=== PATIENT | male | born 1965 | race Caucasian/White ===

== ENCOUNTER 2016-04-27 00:05 | Inpatient (IN) | payer MEDICARE, MEDICAID ==
[~2016-04-27] VITALS: Ht 177.8 cm; Wt 112.6 kg
[2016-04-27] VITALS (65 sets, daily range): BP systolic 98–211; BP diastolic 32–99; PULSE 74–97; RESP 10–21; TEMP 98; Ht 177.8 cm; Wt 112.6 kg
[~2016-04-27 00:05] MED LIST: ALBU18HF INHALATION; CALC667C PO; CARV6.2579 PO; CINA60TA PO; GABA300C16 PO; LANT3I SC; LOSA50TA2 PO; NOVO3I SC; PANT40TA4 PO
[2016-04-27] MEDS ORDERED: NITROGLYCERIN 2% 1 GM OINT PKT TD STA (00:17)
[2016-04-27] MEDS ORDERED: ASPIRIN 81 MG TAB PO ONE (00:30)
[2016-04-27] MEDS ORDERED: NITROGLYCERIN (SL) 0.4 MG TAB SL PRN (00:30)
[2016-04-27 00:59] LABS: BASOPHILS % 0.1 % (0.0-2.0); EOSINOPHILS # 0.1 10^3/ul (0.0-0.5); HEMATOCRIT 37.6 % (42.0-52.0); HEMOGLOBIN 12.6 g/dl (14.0-18.0); LYMPHOCYTES # 1.9 10^3/ul (0.8-2.9); LYMPHOCYTES % 15.9 % (15.0-51.0); MEAN CORPUSCULAR HEMOGLOBIN 29.7 pg (29.0-33.0); MEAN CORPUSCULAR HGB CONC 33.5 g/dl (32.0-37.0); MEAN CORPUSCULAR VOLUME 88.8 fl (82.0-101.0); MEAN PLATELET VOLUME 9.2 fl (7.4-10.4); MONOCYTE # 0.5 10^3/ul (0.3-0.9); MONOCYTES % 4.1 % (0.0-11.0); NEUTROPHIL # 9.3 10^3/ul (1.6-7.5); NEUTROPHILS % 78.9 % (39.0-77.0); PLATELET COUNT 248 10^3/UL (140-440); RED BLOOD COUNT 4.24 10^6/ul (4.70-6.10); RED CELL DISTRIBUTION WIDTH 16.8 % (11.5-14.5); UNCORRECTED WBC 11.8 10^3/ul (4.8-10.8); WHITE BLOOD COUNT 11.8 10^3/ul (4.8-10.8)
[2016-04-27 01:02] LABS: CONDITION 1; LH ANALYZER COMMENTS 1
[2016-04-27 01:04] LABS: AADO2 Arterial 116.8 mmHg (7.0-24.0); Allen Test ACCEPTAB; Arterial Base Excess -6.5 mmol/L (-3.0-3); Arterial COHb 0.2 % (0.0-3.0); Arterial Fraction of Oxyhgb 99.2 % (93.0-99.0); Arterial MetHb 0.1 % (0.0-1.5); Arterial Total Hemglobin 13.4 g/dl (12.0-18.0); Blood Gas IEPAP 18/8; Blood Gas PS 10; MODE MASK - BIPAP
[2016-04-27 01:06] LABS: INR 0.97; PROTIME 12.9 Sec (12.2-14.2)
[2016-04-27 01:07] LABS: PARTIAL THROMBOPLASTIN TIME 30.3 Sec (25.0-35.0)
[2016-04-27] MEDS ORDERED: NITROGLYCERIN 50 MG/D5W (PMX) 250 ML IV STA (01:11)
[2016-04-27 01:24] LABS: CK-MB 7.21 ng/ml (0.0-2.4)
[2016-04-27 01:25] LABS: TROPONIN-I 0.018 ng/ml (0.00-0.12)
[2016-04-27 01:26] LABS: TROPONIN-I 0.017 ng/ml (0.00-0.12)
[2016-04-27 01:34] LABS: CREATININE 15.47 mg/dl (0.61-1.24)
[2016-04-27] MEDS ORDERED: INSULIN REGULAR, HUMAN 100 UNIT/1 ML 3ML VIAL IV STA (01:41)
[2016-04-27] MEDS ORDERED: NA BICARBONATE 8.4% 50 ML SYG IV STA (01:41)
[2016-04-27] MEDS ORDERED: CA GLUCONATE (GM) 10% 10ML INJ IV STA (01:41)
[2016-04-27] MEDS ORDERED: ALBUTEROL 0.5% (NEB) 2.5 MG/0.5 ML AMP INH STA (01:41)
[2016-04-27] MEDS ORDERED: DEXTROSE 50% 50 ML SYRINGE IV STA (01:41)
[2016-04-27 01:42] LABS: POTASSIUM 7.9 mmol/L (3.5-5.1)
--- NOTE | 2016-04-27 02:08 | RADRPT ---
PROCEDURE: XR Chest. CLINICAL INDICATION: Chest pain. TECHNIQUE: AP Portable chest. COMPARISON: 03/29/2016 FINDINGS: There is moderate cardiomegaly. There is mild pulmonary vascular congestion. The osseous structure s are unremarkable. IMPRESSION: Mild pulmonary vascular congestion. RPTAT: HIKT .Jamey Rodríguez MD, MD Date Time Electronically viewed and signed by .Jamey Rodríguez MD, MD on 04/27/2016 02:08 .T/
[2016-04-27] MEDS ORDERED: HYDROmorphONE 1 MG/ML SYG IV STA (02:23)
[2016-04-27] MEDS ORDERED: ONDANSETRON 4 MG INJ IV STA (02:23)
[2016-04-27] MEDS ORDERED: LABETALOL HCL 20MG INJ IV ONE ×2 (02:30→05:30)
[2016-04-27] MEDS ORDERED: NA POLYST SULFON 15 GM/60 ML BTL PO ONE (03:00)
[2016-04-27] MEDS ORDERED: AMLODIPINE 10 MG TAB PO ONE (03:00)
--- NOTE | 2016-04-27 03:38 | ERA ---
ER Documentation Chief Complaint Date/Time DATE: 04/27/16 TIME: 03:35 Chief Complaint Shortness of breath worsening today. on dialysis. MWF HPI Patient is a 50-year-old male with dialysis, diabetes, and hypertension who presents with shortness of breath. The symptoms started today. The symptoms got worse. Patient did have dialysis on Wednesday he says. He denies fever or cough. He was admitted previously on March 28 for hyperkalemia. Upon review of old medical records this is the patient's eighth visit to the ER since 2012. ROS All systems reviewed and are negative except as per history of present illness. Medications Home Meds Active Scripts Carvedilol* (Carvedilol*) 6.25 Mg Tablet, 6.25 MG PO BID for 30 Days, TAB Prov:MICHOACANO SUH NP 03/30/16 Insulin Aspart* (Novolog Insulin Pen*) 100 Unit/Ml Soln, 10 UNIT SC WITH MEALS for 30 Days Prov:MICHOACANO SUH NP 03/30/16 Insulin Glargine* (Lantus*) 100 Unit/Ml Soln, 30 UNIT SC DAILY for 30 Days Prov:MICHOACANO SUH NP 03/30/16 Losartan Potassium* (Cozaar*) 50 Mg Tablet, 50 MG PO DAILY for 30 Days, TAB Prov:MICHOACANO SUH NP 03/30/16 Albuterol Sulfate* (Ventolin HFA*) 18 Gm Hfa.aer.ad, 2 PUFF INHALATION Q4H, #1 INHALER Prov:PAOLO TIERNEY 02/19/16 Reported Medications Calcium Acetate* (Calcium Acetate*) 667 Mg Capsule, 667 MG PO TID, #810 03/28/16 Cinacalcet* (Sensipar*) 60 Mg Tablet, 60 MG PO DAILY, TAB 02/19/16 Pantoprazole* (Pantoprazole*) 40 Mg Tablet.dr, 40 MG PO AC BREAKFAST, TAB 02/19/16 Gabapentin* (Gabapentin*) 300 Mg Capsule, 300 MG PO DAILY, #60 CAP 02/19/16 Allergies Allergies: Coded Allergies: No Known Allergy (Unverified , 02/19/16) PMhx/Soc History of Surgery: Yes (NECK, L AV FISTULA,) Anesthesia Reaction: No Hx Neurological Disorder: No Hx Respiratory Disorders: Yes (SOB) Hx Cardiac Disorders: Yes (HTN) Hx Psychiatric Problems: No Hx Miscellaneous Medical Probl: Yes (DM, ESRD, DIALYSIS) Hx Alcohol Use: No Hx Substance Use: No Hx Tobacco Use: No Smoking Status: Never smoker FmHx Family History: diabetes Physical Exam Vitals Vital Signs Date Time Temp Pulse Resp B/P Pulse Ox O2 Delivery O2 Flow Rate FiO2 04/27/16 01:10 93 100 40 04/27/16 00:35 Non Rebreather 15 04/27/16 00:25 96 100 100 04/27/16 00:06 98.0 97 28 239/120 88 Physical Exam Const: Severe distress Head: Atraumatic Eyes: Normal Conjunctiva ENT: Normal External Ears, Nose and Mouth. Neck: Full range of motion..~ No meningismus. Resp: Decreased breath sounds bilaterally, patient has tachypnea and accessory muscle use Cardio: Tachycardic rate Abd: Soft, non tender, non distended. Normal bowel sounds Skin: Pale Back: No midline or flank tenderness Ext: No cyanosis, or edema Neur: Awake and alert Result Diagram: 04/27/16 0027 04/27/16 0027 Results 24 hrs Laboratory Tests Test 04/27/16 00:15 04/27/16 00:27 Arterial Blood HCO3 20.0mmol/L Arterial Blood Base Excess -6.5mmol/L Arterial Blood Oxygen Saturation 99.5mmHG Roly Test ACCEPTAB Arterial Blood Gas Puncture Site Right Radial Arterial Blood Carboxyhemoglobin 0.2% Arterial Blood Date Drawn 04/27/2016 12:55:08 AM Arterial Blood Methemoglobin 0.1% Arterial Blood pCO2 (Temp correct) 43.2mmhg Arterial Blood pH (Temp corrected) 7.283 Arterial Blood pO2 (Temp corrected) 553.0mmHG Blood Gas A-a O2 Differential 116.8mmHg Blood Gas Actual Respiration Rate 28 Blood Gas Critical Value Read Back Tianna OBRIEN MD Blood Gas IPAP/EPAP Ratio 18/8 Blood Gas Modality MASK - BIPAP Blood Gas Notified Time 04/27/2016 1:04:34 AM Blood Gas Notified Whom KARRIE Blood Gas Pressure Support 10 Blood Gas Respiration Rate 14.0 Blood Gas Specimen Source Blood arterial Blood Gas Temperature 37.0C FiO2 100.0% Oxyhemoglobin Percent 99.2% Total Hemoglobin 13.4g/dl Activated Partial Thromboplast Time 30.3Sec Anion Gap 36 Basophils # 0.010^3/ul Basophils % 0.1% Blood Morphology Comment Blood Urea Nitrogen 119mg/dl Calcium Level 8.0mg/dl Carbon Dioxide Level 22mmol/L Chloride Level 86mmol/L Creatine Kinase 251IU/L Creatine Kinase Index 2.9 Creatinine 15.47mg/dl Creatinine Kinase MB (Mass) 7.21ng/ml Eosinophils # 0.110^3/ul Eosinophils % 1.0% Glucose Level 191mg/dl Hematocrit 37.6% Hemoglobin 12.6g/dl INR International Normalized Ratio 0.97 Lymphocytes # 1.910^3/ul Lymphocytes % 15.9% Mean Corpuscular Hemoglobin 29.7pg Mean Corpuscular Hemoglobin Concent 33.5g/dl Mean Corpuscular Volume 88.8fl Mean Platelet Volume 9.2fl Monocytes # 0.510^3/ul Monocytes % 4.1% Neutrophils # 9.310^3/ul Neutrophils % 78.9% Nucleated Red Blood Cells # 0.010^3/ul Nucleated Red Blood Cells % 0.0/100WBC Platelet Count 28406^3/UL Potassium Level 7.9mmol/L Prothrombin Time 12.9Sec Prothrombin Time Ratio 1.0 Red Blood Count 4.2410^6/ul Red Cell Distribution Width 16.8% Sodium Level 136mmol/L Troponin I 0.017ng/ml White Blood Count 11.810^3/ul Current Medications Medications (Trade) Dose Ordered Sig/Kinjal Route PRN Reason Start Time Stop Time Status Last Admin Dose Admin Aspirin (Aspirin) 162 mg ONCE ONCE PO 04/27/16 00:30 04/27/16 00:31 DC 04/27/16 00:27 Nitroglycerin (Nitroglycerin 2% Oint) 1 inch ONCE STAT TD 04/27/16 00:17 04/27/16 00:18 DC 04/27/16 00:26 Nitroglycerin 1 tab 1 tab Q5M UP TO 3 DOSES PRN SL CHEST PAIN 04/27/16 00:30 04/27/16 00:27 Nitroglycerin/ Dextrose (Nitroglycerin 50 Mg/D5W (Pmx)) 250 ml @ 6 mls/hr ONCE STAT IV 04/27/16 01:11 04/28/16 18:50 04/27/16 01:26 Insulin Human Regular (Humulin R) 10 unit ONCE STAT IV 04/27/16 01:41 04/27/16 01:43 DC 04/27/16 01:54 Dextrose (D50w Syringe) 50 ml ONCE STAT IV 04/27/16 01:41 04/27/16 01:43 DC 04/27/16 01:53 Albuterol (Proventil 0.5% (Neb)) 15 mg ONCE STAT INH 04/27/16 01:41 04/27/16 01:43 DC 04/27/16 01:58 Sodium Bicarbonate (Na Bicarb 8.4% Syg) 50 ml ONCE STAT IV 04/27/16 01:41 04/27/16 01:43 DC 04/27/16 01:58 Calcium Gluconate (Ca Gluc) 1 gm ONCE STAT IV 04/27/16 01:41 04/27/16 01:43 DC 04/27/16 01:52 Labetalol HCl (Labetalol) 20 mg ONCE ONCE IV 04/27/16 02:30 04/27/16 02:31 DC 04/27/16 02:15 Hydromorphone HCl (Dilaudid) 1 mg ONCE STAT IV 04/27/16 02:23 04/27/16 02:24 DC 04/27/16 02:33 Ondansetron HCl (Zofran Inj) 4 mg ONCE STAT IV 04/27/16 02:23 04/27/16 02:24 DC 04/27/16 02:33 Amlodipine Besylate (Norvasc) 10 mg ONCE ONCE PO 04/27/16 03:00 04/27/16 03:01 DC Sodium Polystyrene Sulfonate (Kayexalate) 30 gm ONCE ONCE PO 04/27/16 03:00 04/27/16 03:01 DC 04/27/16 02:55 Procedures/MDM EKG read by me: Rate/Rhythm: Regular rate and rhythm at a rate of 97 Intervals: Normal Impression: Peaked T waves of hyperkalemia Patient is a 50-year-old male presents with what appears to be acute pulmonary edema. He needed BiPAP therapy as he was hypoxic. He was also significantly hypertensive and was given labetalol 20 mg IV and placed on a nitroglycerin drip. The patient has hyperkalemia with a potassium of 7.9 and required insulin , glucose, albuterol, bicarbonate, Kayexalate, and calcium. The patient will need emergent dialysis. I spoke with Dr. Ward who will arrange dialysis in the morning. His insurance is [employer] and I spoke with Dr. Woodruff who will admit the patient to the intensive care unit. Critical Care: Time: 45 minutes excluding all billable procedures. Treatments/Evaluations: Close monitoring and treatment of unstable vital signs, cardiorespiratory, and neurologic status, while maintaining tight balance of fluid, respiratory, and cardiac interventions. Departure Diagnosis: Primary Impression: Hyperkalemia Additional Impressions: Hypertensive emergency Shortness of breath Condition: Critical ERICK MCKEON MD Apr 27, 2016 03:38
[2016-04-27] MEDS ORDERED: INSULIN REGULAR, HUMAN 100 UNIT in SOD CHLORIDE 0.9% 99 ML IV SCH ×2 (06:00)
[2016-04-27] MEDS ORDERED: ACCUCHECK XX SCH (06:00)
[2016-04-27] MEDS ORDERED: ONDANSETRON 4 MG INJ IV PRN (06:00)
[2016-04-27] MEDS ORDERED: ZOLPIDEM 5 MG TAB PO PRN (06:00)
[2016-04-27] MEDS ORDERED: GLUCOSE GEL 15 GRAM TUBE PO PRN ×2 (07:00)
[2016-04-27] MEDS ORDERED: DEXTROSE 50% 50 ML SYRINGE IV PRN ×2 (07:00)
[2016-04-27] MEDS ORDERED: GLUCAGON 1 MG INJ IM PRN (07:00)
[2016-04-27] MEDS ORDERED: GLUCOSE GEL 15 GRAM TUBE BUCCAL PRN (07:00)
[2016-04-27] MEDS ORDERED: CARV12.579 PO (07:14)
[2016-04-27] MEDS ORDERED: FOLI-49 PO (07:14)
[2016-04-27] MEDS ORDERED: APR50 PO (07:14)
[2016-04-27] MEDS ORDERED: NEPH PO (07:15)
[2016-04-27] MEDS ORDERED: HYDR-906 PO (07:16)
[2016-04-27] MEDS ORDERED: TRAV2.5D BOTH EYES (07:17)
[2016-04-27] MEDS ORDERED: BRIM15DR2 BOTH EYES (07:17)
[2016-04-27] MEDS ORDERED: LATA2.5D9 BOTH EYES (07:18)
[2016-04-27] MEDS: SEVELAMER CARBONATE 0.8 GM PKT PO SCH ×3 (07:30→17:32)
[2016-04-27 07:59] LABS: AADO2 Arterial 85.4 mmHg (7.0-24.0); Allen Test ACCEPTAB; Arterial Base Excess -6.3 mmol/L (-3.0-3); Arterial COHb 0.3 % (0.0-3.0); Arterial Fraction of Oxyhgb 98.1 % (93.0-99.0); Arterial HCO3 18.1 mmol/L (22.0-26.0); Arterial MetHb 0.1 % (0.0-1.5); Arterial Total Hemglobin 12.1 g/dl (12.0-18.0); Blood Gas IEPAP 22/8; Blood Gas PS 14; MODE MASK - BIPAP
[2016-04-27] MEDS: INSULIN ASPART [NOVOLOG] 3 ML PEN SC SCH ×4 (08:00→20:41)
[2016-04-27 08:37] LABS: CALCIUM 7.6 mg/dl (8.4-10.2)
[2016-04-27 08:53] LABS: CREATININE 15.52 mg/dl (0.61-1.24)
[2016-04-27 08:54] LABS: POTASSIUM 6.9 mmol/L (3.5-5.1)
[2016-04-27] MEDS ORDERED: CARVEDILOL (CR) 80 MG CAP PO SCH (09:00)
[2016-04-27] MEDS ORDERED: LOSARTAN 50 MG TAB PO SCH (09:00)
[2016-04-27] MEDS: GABAPENTIN 300 MG CAP PO SCH (09:15)
[2016-04-27] MEDS: HYDROCODONE/APAP (5/325) TAB PO PRN ×3 (09:15→20:37)
[2016-04-27] MEDS: CALCIUM ACETATE 667 MG CAP PO SCH ×3 (09:15→17:32)
[2016-04-27] MEDS: PANTOPRAZOLE (EC) 40 MG TAB PO SCH (09:16)
[2016-04-27] MEDS: INSULIN GLARGINE [LANtus] 3 ML PEN SC SCH (09:29)
--- NOTE | 2016-04-27 10:03 | CONS ---
DATE OF ADMISSION: 04/27/2016 DATE OF CONSULTATION: TYPE OF CONSULTATION: Nephrology. HISTORY OF PRESENT ILLNESS: This is a 50-year-old gentleman with known end-stage renal disease due to diabetes and hypertension who has been on dialysis for the past 3 years and dialyzes every Wednesday , Wednesday, and Wednesday at the [facility] in [place]. On repeated questioning, I could not ascertain exactly who his outpatient passenger booking clerk is. Needless to say, he did his routine dialysis on Wednesday, 3 days ago, but presented to the ER early th is morning hypertensive, hyperkalemic and in congestive heart failure with a potassium of 7.9. His blood pressure reportedly was 240/120. The patient was placed on BiPAP, given labetalol IV as well as treated for his hyperkalemia with alb uterol, bicarb, glucose and insulin and admitted to the ICU, and he is currently on dialysis. He feels markedly improved, albeit history is somewhat limited as the patient is on a BiPAP mask. Apparently, he has done this numerous times in the past, most recently was hospitalized on 6 with a similar presentation. He currently denies any chest pain. PAST MEDICAL HISTORY: Please see full dictated problem list. ALLERGIES: NONE. HABITS: Tobacco: None. Alcohol: None. CURRENT MEDICATIONS: 1. Insulin per sliding scale. 2. Nitroglycerin drip for blood pressure control. 3. Albuterol. 4. Amlodipine 10 mg a day. 5. Aspirin 162 mg a day. 6. PhosLo 2 tabs t.i.d. with meals. 7. Carvedilol 6.25 b.i.d. 8. Neurontin 300 mg daily. 9. Losartan 50 mg daily. 10. Pantoprazole 40 mg daily. REVIEW OF SYSTEMS: As per HPI, 14-point system otherwise negative. PHYSICAL EXAMINATION: GENERAL: Awake, alert gentleman currently on BiPAP but in no acute distress. VITAL SIGNS: He is afebrile, blood pressure is 159/92, heart rate is 77 in a sinus rhythm, respirat ions are 12 to 16. O2 saturation is 100% on 40% BiPAP. SKIN: Warm, well perfused. HEAD: Normocephalic, atraumatic. EYES: Pupils are round, reactive. Extraocular movements are full. Sclerae are anicteric. PHARYNX: No lesions. NECK: His neck is thick and squat. JVP could not be discerned. BACK: No CVAT. LUNGS: Show a few fine rales at the bases. HEART: S1, S2, regular rate and rhythm. ABDOMEN: Soft and nontender. EXTREMITIES: No cyanosis, clubbing or edema. Distal pulses are 2+. He has a well-functioning left forearm AV fistula. LABORATORY DATA: White count 11.8, hemoglobin 12.6, hematocrit 37.6, platelet count 248,000. INR i s 0.97, sodium 137, potassium 6.9, chloride 88, bicarbonate 22, BUN 125, creatinine 15.52, glucose 1 19, calcium is 7.6. Troponin is 0.018 and 0.017. PROBLEM LIST: 1. Acute congestive heart failure, currently on dialysis with improving symptoms. 2. End-stage renal disease on dialysis every Wednesday, Wednesday, Wednesday for the past 3 years. 3. Hyperkalemia status post cocktail in the emergency room, now on dialysis. 4. Diabetes mellitus. 5. Hypertension, markedly improved with resumption of medications and dialysis. RECOMMENDATIONS: 1. Acute hemodialysis that is currently ongoing. 2. Resume antihypertensive medications. 3. Further recommendations pending response to above. Dictated By: NAUN LANDRY MD, MM/SCOTT Conf#: [id number] DID#: [id number]
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
[2016-04-27 13:15] LABS: AADO2 Arterial 58.6 mmHg (7.0-24.0); Allen Test ACCEPTAB; Arterial Base Excess 1.1 mmol/L (-3.0-3); Arterial COHb 0.1 % (0.0-3.0); Arterial Fraction of Oxyhgb 97.6 % (93.0-99.0); Arterial HCO3 25.4 mmol/L (22.0-26.0); Arterial MetHb 0 % (0.0-1.5); MODE NASAL CANNULA
[2016-04-27 13:54] LABS: BASOPHILS % 0.5 % (0.0-2.0); EOSINOPHILS # 0.1 10^3/ul (0.0-0.5); EOSINOPHILS % 1.4 % (0.0-7.0); HEMATOCRIT 32.4 % (42.0-52.0); HEMOGLOBIN 10.9 g/dl (14.0-18.0); LYMPHOCYTES # 0.9 10^3/ul (0.8-2.9); MEAN CORPUSCULAR HEMOGLOBIN 29.5 pg (29.0-33.0); MEAN CORPUSCULAR HGB CONC 33.6 g/dl (32.0-37.0); MEAN CORPUSCULAR VOLUME 87.7 fl (82.0-101.0); MEAN PLATELET VOLUME 9.2 fl (7.4-10.4); MONOCYTE # 0.4 10^3/ul (0.3-0.9); MONOCYTES % 4.8 % (0.0-11.0); NEUTROPHIL # 7.5 10^3/ul (1.6-7.5); NEUTROPHILS % 83.3 % (39.0-77.0); PLATELET COUNT 214 10^3/UL (140-440); RED BLOOD COUNT 3.69 10^6/ul (4.70-6.10); RED CELL DISTRIBUTION WIDTH 16.9 % (11.5-14.5)
[2016-04-27 13:55] LABS: CONDITION 1; LH ANALYZER COMMENTS 1
[2016-04-27 14:09] LABS: ALBUMIN 4.7 g/dl (3.3-4.9)
[2016-04-27 14:10] LABS: POTASSIUM 4.6 mmol/L (3.5-5.1)
[2016-04-27 14:12] LABS: ALBUMIN/GLOBULIN RATIO 1.42; BILIRUBIN,INDIRECT 0.7 mg/dl (0-1.1); BILIRUBIN,TOTAL 0.7 mg/dl (0.2-1.3); CREATININE 10.11 mg/dl (0.61-1.24)
[2016-04-27 14:13] LABS: CALCIUM 8.3 mg/dl (8.4-10.2); MAGNESIUM 2.2 mg/dl (1.7-2.5); PHOSPHORUS 7.4 mg/dl (2.5-4.9)
[2016-04-27 14:24] LABS: CK-MB 4.33 ng/ml (0.0-2.4); TROPONIN-I 0.018 ng/ml (0.00-0.12)
[2016-04-27] MEDS: NITROGLYCERIN 50 MG/D5W (PMX) 250 ML IV SCH (19:35)
[2016-04-27] MEDS ORDERED: AMLODIPINE 5 MG TAB PO ONE (20:00)
[2016-04-28] VITALS (71 sets, daily range): BP systolic 95–180; BP diastolic 56–116; PULSE 70–100; RESP 11–34
[2016-04-28] MEDS: ACCUCHECK AT 2AM (Patients on SS coverage) XX SCH (02:00)
[2016-04-28] MEDS: morphine 2 MG INJ IV PRN ×3 (02:03→18:24)
[2016-04-28] MEDS: NITROGLYCERIN 50 MG/D5W (PMX) 250 ML IV SCH (04:49)
[2016-04-28 06:00] LABS: BASOPHILS % 0.4 % (0.0-2.0); EOSINOPHILS # 0.1 10^3/ul (0.0-0.5); EOSINOPHILS % 0.9 % (0.0-7.0); HEMATOCRIT 32.6 % (42.0-52.0); HEMOGLOBIN 11.1 g/dl (14.0-18.0); LYMPHOCYTES # 1.1 10^3/ul (0.8-2.9); MEAN CORPUSCULAR HEMOGLOBIN 30.2 pg (29.0-33.0); MEAN CORPUSCULAR HGB CONC 34.1 g/dl (32.0-37.0); MEAN CORPUSCULAR VOLUME 88.7 fl (82.0-101.0); MEAN PLATELET VOLUME 8.6 fl (7.4-10.4); MONOCYTE # 0.9 10^3/ul (0.3-0.9); MONOCYTES % 7.5 % (0.0-11.0); NEUTROPHIL # 10.2 10^3/ul (1.6-7.5); NEUTROPHILS % 82.2 % (39.0-77.0); PLATELET COUNT 202 10^3/UL (140-440); RED BLOOD COUNT 3.67 10^6/ul (4.70-6.10); RED CELL DISTRIBUTION WIDTH 17.3 % (11.5-14.5); UNCORRECTED WBC 12.4 10^3/ul (4.8-10.8); WHITE BLOOD COUNT 12.4 10^3/ul (4.8-10.8)
[2016-04-28 06:03] LABS: CONDITION 1; LH ANALYZER COMMENTS 1
[2016-04-28] MEDS: PANTOPRAZOLE (EC) 40 MG TAB PO SCH (06:07)
[2016-04-28] MEDS: HYDROCODONE/APAP (5/325) TAB PO PRN ×3 (06:07→20:04)
--- NOTE | 2016-04-28 07:01 | RADRPT ---
PROCEDURE: XR Chest. CLINICAL INDICATION: Shortness of breath TECHNIQUE: An AP view of the chest was obtained. COMPARISON: Chest x-ray dated 04/27/2016 FINDINGS: There is prominence of the interstitial markings. No pleural effusion or pneumothorax is seen. Th e cardiomediastinal silhouette is mildly enlarged . Calcifications are seen within the aortic arch. The osseous structures demonstrate senescent changes. IMPRESSION: 1. Mild prominence of the interstitial markings, may reflect mild underlying interstitial edema or chronic lung changes. Lung aeration is significantly improved when compared to the prior examination . 2. Mild cardiomegaly and aortic atherosclerosis. RPTAT: HH .Denise Aranda MD, Date Time Electronically viewed and signed by .Denise Aranda MD, on 04/28/2016 07:00 .Brian/
[2016-04-28] MEDS: INSULIN ASPART [NOVOLOG] 3 ML PEN SC SCH ×4 (07:35→21:00)
[2016-04-28] MEDS: SEVELAMER CARBONATE 0.8 GM PKT PO SCH ×3 (07:59→17:35)
[2016-04-28] MEDS: CALCIUM ACETATE 667 MG CAP PO SCH ×3 (08:00→17:35)
[2016-04-28 08:08] LABS: ALBUMIN/GLOBULIN RATIO 1.53
[2016-04-28 08:10] LABS: POTASSIUM 5.4 mmol/L (3.5-5.1)
[2016-04-28 08:11] LABS: ALBUMIN 4.3 g/dl (3.3-4.9); BILIRUBIN,INDIRECT 0.5 mg/dl (0-1.1); BILIRUBIN,TOTAL 0.5 mg/dl (0.2-1.3); CALCIUM 7.7 mg/dl (8.4-10.2); CREATININE 12.18 mg/dl (0.61-1.24); TOTAL PROTEIN 7.1 g/dl (6.1-8.1)
[2016-04-28] MEDS: GABAPENTIN 300 MG CAP PO SCH (08:45)
[2016-04-28] MEDS: LOSARTAN 50 MG TAB PO SCH (08:45)
[2016-04-28] MEDS: NIFEdipine (XL) 30 MG TAB PO SCH (08:46)
[2016-04-28] MEDS: INSULIN GLARGINE [LANtus] 3 ML PEN SC SCH (08:47)
--- NOTE | 2016-04-28 10:44 | CONS ---
DATE OF ADMISSION: 04/27/2016 DATE OF CONSULTATION: NEPHROLOGY CONSULTATION NOTE SUBJECTIVE: The patient feels markedly better after dialysis yesterday with resolution of his marked CHF and hyperkalemia. He still feels somewhat weak, but no chest pain or shortness of breath. He remains on IV nitro for blood pressure control. PHYSICAL EXAMINATION: VITAL SIGNS: He is afebrile, blood pressure 130/75, heart rate is 90 and sinus rhythm, respirations are 12 and unlabored, O2 saturation 100% on 2 liters. SKIN: No new rashes. LUNGS: Clear. HEART: S1, S2, regular rate and rhythm. ABDOMEN: Soft and nontender. EXTREMITIES: No edema. Well-functioning fistula in the left upper extremity. LABORATORY DATA: White count 12.4, hemoglobin 11.1, hematocrit 32.6, platelet count 202,000. Chemi stries are pending. Sugar is 143. Chest x-ray shows just mild prominent interstitial markings much improved over yesterday. PROBLEM LIST: 1. Hyperkalemia presumably resolved. A.m. labs pending. 2. End-stage renal disease for planned dialysis tomorrow. 3. Acute congestive heart failure, markedly improved. 4. Diabetes mellitus with good control. 5. Hypertension due to low dose medication. RECOMMENDATIONS: 1. I will increase his carvedilol to 25 mg b.i.d. 2. We will Increase Losartan to 100 mg a day. 3. We will add Procardia-XL 30 mg a day. 4. Clonidine 0.1 q.4h. p.r.n. 5. Rapidly wean off IV nitro once the above are started. 6. Physical therapy. 7. Dialysis in the morning. Dictated By: NAUN LANDRY MD, MM/SCOTT Conf#: [id number] DID#: [id number]
--- NOTE | 2016-04-28 12:44 | PN ---
Date/Time of Note Date/Time of Note DATE: 04/28/16 TIME: 12:31 Assessment/Plan VTE Prophylaxis VTE Prophylaxis Intervention: SCD's Lines/Catheters IV Catheter Type (from Nrs): Peripheral IV Urinary Cath still in place: No Assessment/Plan Assessment/Plan 50-year-old male : 1. CHF exacerbation likely with diastolic dysfunction and respiratory distress 2ry to volume overload, dietary indiscretion (after eating tamales and going through 1 bottle of Champagne) on Sirisha and day. HD emergently and volume status much better today. Patient seemed to have similar episode earlier in March too.. Compliance mat be an ongoing issue 2. Hypertensive Emergency: s/p HD and BP meds added and adjusted Monitor and titrating Nitro gtt down 3. Hyperkalemia: resolving with HD Renal diet 4. Diabetes Mellitus: SSI and back on Lantus Check A1c, however was 9.5 earlier this month Prophylaxis: SCDs for DVT ppx and PPI for GI ppx Disposition: Titrating off Nitro gtt Subjective 24 Hr Interval Summary Free Text/Dictation Patient feels better Still on Nitro gtt but being titrated down Appreciate recommendations from Nephro for BP meds additions and adjustments Exam/Review of Systems Vital Signs Vitals Vital Signs Date Time Temp Pulse Resp B/P Pulse Ox O2 Delivery O2 Flow Rate FiO2 04/28/16 12:15 83 16 126/65 100 Nasal Cannula 04/28/16 12:00 98.8 04/28/16 08:00 2.0 04/27/16 09:30 40 Intake and Output 04/27/16 04/27/16 04/28/16 15:00 23:00 07:00 Intake Total 981.5 ml 852.75 ml 338.5 ml Output Total 5200 ml 0 ml 0 ml Balance -4218.5 ml 852.75 ml 338.5 ml Exam Constitutional: alert, oriented, other (a little restless ), well developed Respiratory: clear to auscultation, normal air movement Cardiovascular: nl pulses, regular rate and rhythm Gastrointestinal: non-tender, soft Musculoskeletal: nl extremities to inspection Extremities: edema (+1 edema), normal pulses Neurological: [employer]ANCE [employer]UC[employer] LIAISON II-XII intact, nl mental status, nl speech, nl strength Results Result Diagram: 04/28/16 0535 04/28/16 0535 Results 24 hrs Laboratory Tests Test 04/27/16 13:00 04/27/16 13:45 04/27/16 17:30 04/27/16 20:39 Arterial Blood HCO3 25.4 Arterial Blood Base Excess 1.1 Arterial Blood Oxygen Saturation 97.7 Roly Test ACCEPTAB Arterial Blood Gas Puncture Site Right Radial Arterial Blood Carboxyhemoglobin 0.1 Arterial Blood Date Drawn 04/27/2016 1:05:43 PM Arterial Blood Methemoglobin 0 Arterial Blood pCO2 (Temp correct) 38.9 Arterial Blood pH (Temp corrected) 7.432 Arterial Blood pO2 (Temp corrected) 109.6 H Blood Gas A-a O2 Differential 58.6 H Blood Gas Modality NASAL CANNULA Blood Gas Notified Time 04/27/2016 1:15:10 PM Blood Gas Notified Whom TM Blood Gas Specimen Source Blood arterial Blood Gas Temperature 37.0 FiO2 30.0 Oxyhemoglobin Percent 97.6 Total Hemoglobin 12.0 Alanine Aminotransferase (ALT/SGPT) 29 Albumin 4.7 Albumin/Globulin Ratio 1.42 Alkaline Phosphatase 128 H Anion Gap 27 #H Aspartate Amino Transf (AST/SGOT) 33 Basophils # 0.0 Basophils % 0.5 Blood Morphology Comment Blood Urea Nitrogen 72 #H Calcium Level 8.3 L Carbon Dioxide Level 26 Chloride Level 90 L Creatine Kinase 182 Creatine Kinase Index 2.4 Creatinine 10.11 #H Creatinine Kinase MB (Mass) 4.33 H Direct Bilirubin 0.00 Eosinophils # 0.1 Eosinophils % 1.4 Globulin 3.30 H Glucose Level 179 Hematocrit 32.4 L Hemoglobin 10.9 L Indirect Bilirubin 0.7 Lymphocytes # 0.9 Lymphocytes % 10.0 L Magnesium Level 2.2 Mean Corpuscular Hemoglobin 29.5 Mean Corpuscular Hemoglobin Concent 33.6 Mean Corpuscular Volume 87.7 Mean Platelet Volume 9.2 Monocytes # 0.4 Monocytes % 4.8 Neutrophils # 7.5 Neutrophils % 83.3 H Nucleated Red Blood Cells # 0.0 Nucleated Red Blood Cells % 0.0 Phosphorus Level 7.4 H Platelet Count 214 Potassium Level 4.6 # Red Blood Count 3.69 L Red Cell Distribution Width 16.9 H Sodium Level 138 Total Bilirubin 0.7 Total Protein 8.0 Troponin I 0.018 White Blood Count 9.0 # Bedside Glucose 212 184 Test 04/28/16 02:09 04/28/16 05:35 04/28/16 07:59 04/28/16 11:42 Bedside Glucose 143 110 113 Alanine Aminotransferase (ALT/SGPT) 37 Albumin 4.3 Albumin/Globulin Ratio 1.53 Alkaline Phosphatase 116 Anion Gap 30 H Aspartate Amino Transf (AST/SGOT) 19 Basophils # 0.0 Basophils % 0.4 Blood Morphology Comment Blood Urea Nitrogen 86 H Calcium Level 7.7 L Carbon Dioxide Level 23 Chloride Level 87 L Creatinine 12.18 #H Direct Bilirubin 0.00 Eosinophils # 0.1 Eosinophils % 0.9 Globulin 2.80 Glucose Level 106 # Hematocrit 32.6 L Hemoglobin 11.1 L Indirect Bilirubin 0.5 Lymphocytes # 1.1 Lymphocytes % 9.0 L Mean Corpuscular Hemoglobin 30.2 Mean Corpuscular Hemoglobin Concent 34.1 Mean Corpuscular Volume 88.7 Mean Platelet Volume 8.6 Monocytes # 0.9 Monocytes % 7.5 Neutrophils # 10.2 H Neutrophils % 82.2 H Nucleated Red Blood Cells # 0.0 Nucleated Red Blood Cells % 0.0 Platelet Count 202 Potassium Level 5.4 H Red Blood Count 3.67 L Red Cell Distribution Width 17.3 H Sodium Level 135 Total Bilirubin 0.5 Total Protein 7.1 White Blood Count 12.4 #H Medications Medications Current Medications Insulin Glargine (Lantus) 30 unit DAILY SC Last administered on 04/28/16 08:47 ; Admin Dose 30 UNIT; Start 04/27/16 at 09:00 Gabapentin (Neurontin) 300 mg DAILY PO Last administered on 04/28/16 08:45; Admin Dose 300 MG; Start 04/27/16 at 09:00 Pantoprazole (Protonix Tab) 40 mg DAILY@06 PO Last administered on 04/28/16 06: 07; Admin Dose 40 MG; Start 04/27/16 at 06:00 Ondansetron HCl (Zofran Inj) 4 mg Q6H PRN IV NAUSEA; Start 04/27/16 at 06:00 Zolpidem Tartrate (Ambien) 5 mg HS PRN PO INSOMNIA; Start 04/27/16 at 06:00 Diagnostic Test (Pha) (Accucheck) 1 ea 02 XX Last administered on 04/28/16 02: 00; Admin Dose 1 EA; Start 04/28/16 at 02:00 Miscellaneous Information 1 ea NOTE XX ; Start 04/27/16 at 07:00 Glucose (Glutose) 15 gm Q15M PRN PO DECREASED GLUCOSE; Start 04/27/16 at 07:00 Glucose (Glutose) 22.5 gm Q15M PRN PO DECREASED GLUCOSE; Start 04/27/16 at 07:00 Dextrose (D50w Syringe) 25 ml Q15M PRN IV DECREASED GLUCOSE; Start 04/27/16 at 07:00 Dextrose (D50w Syringe) 50 ml Q15M PRN IV DECREASED GLUCOSE; Start 04/27/16 at 07:00 Glucagon (Glucagen) 1 mg Q15M PRN IM DECREASED GLUCOSE; Start 04/27/16 at 07:00 Glucose (Glutose) 15 gm Q15M PRN BUCCAL DECREASED GLUCOSE; Start 04/27/16 at 07: 00 Acetaminophen/ Hydrocodone Bitart 1 tab 1 tab Q4H PRN PO PAIN LEVEL 6-10 Last administered on 04/28/16 06:07; Admin Dose 1 TAB; Start 04/27/16 at 09:00 Nitroglycerin/ Dextrose (Nitroglycerin 50 Mg/D5W (Pmx)) 250 ml @ 0 mls/hr TITRATE IV Last administered on 04/28/16 04:49; Admin Dose 28.5 MLS/HR; Start 04/27/16 at 19:30 Morphine Sulfate (morphine) 2 mg Q4H PRN IV pain Last administered on 04/28/16 09:33; Admin Dose 2 MG; Start 04/28/16 at 02:00 Carvedilol (Coreg) 25 mg BID PO Last administered on 04/28/16 08:46; Admin Dose 25 MG; Start 04/28/16 at 09:00 Losartan Potassium (Cozaar) 100 mg DAILY PO Last administered on 04/28/16 08:45 ; Admin Dose 100 MG; Start 04/28/16 at 09:00 Nifedipine (Procardia Xl) 30 mg DAILY PO Last administered on 04/28/16 08:46; Admin Dose 30 MG; Start 04/28/16 at 09:00 Clonidine (Catapres) 0.1 mg Q4H PRN PO ELEVATED BLOOD PRESSURE; Start 04/28/16 at 08:00 ROGELIO NANCE Apr 28, 2016 12:42
[2016-04-28 14:37] LABS: POTASSIUM 5.4 mmol/L (3.5-5.1)
[2016-04-28 14:40] LABS: CALCIUM 7.3 mg/dl (8.4-10.2)
[2016-04-28 14:56] LABS: CREATININE 12.96 mg/dl (0.61-1.24)
--- NOTE | 2016-04-28 15:21 | RADRPT ---
Echocardiogram Report Patient Name: KIKI TINEO Gender: Male Date: 1965 Study Date: 28-Apr-2016 Medical Laboratory Technicians: Jordi Wakefield RDCS Location: [facility] [place] [place] Ref. Physician: SHIRIN NANCE Quality: Adequate Procedures: Transthoracic echocardiogram with complete 2D, M-Mode, and doppler examination. Indications: Congestive Heart Failure. 2D/M Mode Doppler Measurement Value Normal Ranges Measurement Value Normal Ranges LVIDd 2D 6.6 3.5 - 5.6 cm AV Peak Vinicio 1.7 m/sec LVIDs 2D 3.8 2.1 - 4.1 cm AV Peak PG 11.8 mmHg LVPWd 2D 1.1 0.6 - 1.1 cm LVOT Peak Vinicio 1.3 m/sec IVSd 2D 1.2 0.6 - 1.1 cm LVOT Peak PG 7.0 mmHg AoR Diam 2D 3.3 2.0 - 3.7 cm MV E Peak Vinicio 0.9 m/sec EDV 2D 222.0 cm3 MV A Peak Vinicio 1.0 m/sec ESV 2D 55.4 cm3 MV E/A 0.9 LA Dimen 2D 3.9 2.3 - 4.0 cm MV Decel Time 212 msec MV Decel [place] 4 MV E/A 0.9 TR Peak Vinicio 2.9 m/sec TR Peak PG 33.6 mmHg RVSP 42.0 mmHg Findings Left Ventricle: Mild concentric left ventricular hypertrophy. Mild enlargement of left ventricle cavity. Mild to moderate global left ventricular systolic dysfunction. Ejection fraction is visually estimated at 40 %. Tissue Doppler/Mitral Doppler indices are consistent with impaired relaxation (Stage I diastolic dysfunction). Right Ventricle: Normal right ventricular size. Normal right ventricular systolic function. Left Atrium: The left atrium is normal in size. Right Atrium: The right atrium is normal in size. Mitral Valve: Mitral valve leaflets appear mildly thickened. Mild mitral annular calcification. Mild mitral valve regurgitation. Aortic Valve: Normal appearance of the aortic valve. No significant aortic stenosis or insufficiency. Tricuspid Valve: Normal appearance of the tricuspid valve. Estimated peak PA systolic pressure 42 mmHg. There is mild tricuspid regurgitation. Pericardium: Normal pericardium with no significant pericardial effusion. Aorta: Normal aortic root. IVC: Dilated IVC with respiratory collapse consistent with elevated right atrial pressure. Conclusions 1.Mild concentric left ventricular hypertrophy. Mild enlargement of left ventricle cavity. Mild to moderate global left ventricular systolic dysfunction. Ejection fraction is visually estimated at 40 %. Tissue Doppler/Mitral Doppler indices are consistent with impaired relaxation (Stage I diastolic dysfunction). 2.Normal right ventricular size. Normal right ventricular systolic function. 3.The left atrium is normal in size. 4.The right atrium is normal in size. 5.Mild mitral valve regurgitation. 6.No significant aortic stenosis or insufficiency. 7.Estimated peak PA systolic pressure 42 mmHg. There is mild tricuspid regurgitation. 8.Normal pericardium with no significant pericardial effusion. Electronically Signed By: Carlos Latif 28-Apr-2016 15:20:36 -0800 Patient Name: KIKI TINEO Study Date: 28-Apr-[id number]
[2016-04-29] VITALS (21 sets, daily range): BP systolic 107–155; BP diastolic 57–92; PULSE 68–86; RESP 10–18
[2016-04-29] MEDS: HYDROCODONE/APAP (5/325) TAB PO PRN ×2 (00:41→09:19)
[2016-04-29] MEDS: ACCUCHECK AT 2AM (Patients on SS coverage) XX SCH (02:00)
[2016-04-29 04:56] LABS: POTASSIUM 5.1 mmol/L (3.5-5.1)
[2016-04-29 04:57] LABS: BASOPHIL # 0.1 10^3/ul (0.0-0.1); BASOPHILS % 0.5 % (0.0-2.0); EOSINOPHILS # 0.2 10^3/ul (0.0-0.5); HEMOGLOBIN 10.7 g/dl (14.0-18.0); LYMPHOCYTES # 2.1 10^3/ul (0.8-2.9); LYMPHOCYTES % 20.9 % (15.0-51.0); MEAN CORPUSCULAR HEMOGLOBIN 29.8 pg (29.0-33.0); MEAN CORPUSCULAR HGB CONC 33.6 g/dl (32.0-37.0); MEAN CORPUSCULAR VOLUME 88.8 fl (82.0-101.0); MEAN PLATELET VOLUME 8.7 fl (7.4-10.4); MONOCYTE # 0.8 10^3/ul (0.3-0.9); MONOCYTES % 8.1 % (0.0-11.0); NEUTROPHILS % 68.5 % (39.0-77.0); PLATELET COUNT 185 10^3/UL (140-440); UNCORRECTED WBC 10.3 10^3/ul (4.8-10.8); WHITE BLOOD COUNT 10.3 10^3/ul (4.8-10.8)
[2016-04-29 04:59] LABS: CALCIUM 7.5 mg/dl (8.4-10.2)
[2016-04-29 05:05] LABS: MAGNESIUM 2.1 mg/dl (1.7-2.5); PHOSPHORUS 11.8 mg/dl (2.5-4.9)
[2016-04-29 05:24] LABS: CONDITION 1; LH ANALYZER COMMENTS 1
[2016-04-29] MEDS: morphine 2 MG INJ IV PRN ×3 (05:42→19:58)
[2016-04-29] MEDS: PANTOPRAZOLE (EC) 40 MG TAB PO SCH (05:43)
[2016-04-29] MEDS: INSULIN ASPART [NOVOLOG] 3 ML PEN SC SCH ×4 (07:35→20:02)
[2016-04-29] MEDS: CALCIUM ACETATE 667 MG CAP PO SCH ×3 (08:40→17:47)
[2016-04-29] MEDS: SEVELAMER CARBONATE 0.8 GM PKT PO SCH ×3 (08:40→17:47)
--- NOTE | 2016-04-29 08:40 | CONS ---
DATE OF ADMISSION: 04/27/2016 DATE OF CONSULTATION: NEPHROLOGY NOTE SUBJECTIVE: The patient's medications were changed as I noted yesterday, and he has been safely off nitroglycerin now for several hours with excellent BP control. He has no complaints. OBJECTIVE: VITAL SIGNS: He remains afebrile, blood pressure currently is 110/60, heart rate is 70 and regular, respirations are 12 and unlabored, O2 saturation is 100% on 2 L. SKIN: No new rashes. LUNGS: Clear. HEART: S1, S2, regular rate and rhythm. ABDOMEN: Soft. EXTREMITIES: No edema. LABORATORY DATA: White count 10.3, hemoglobin 10.7, hematocrit 32.0, platelet count 185,000. Sodiu m 130, potassium 5.1, chloride 84, bicarbonate 22, BUN 109, creatinine 15, glucose 169, calcium is 7 .5. Phosphorus is 11.8, magnesium is 2.1. Chest x-ray yesterday showed just mild prominence of int erstitial markings, much improved compared to the predialysis chest x-ray. PROBLEM LIST: 1. Hyperkalemia due to noncompliance, resolved with dialysis. 2. Congestive heart failure due to above, also resolved with dialysis. 3. Hypertension, out of control, now under excellent control with current list of medications off n itroglycerin. 4. End-stage renal disease, for planned hemodialysis today. 5. Hyperphosphatemia due to noncompliance as noted. 6. Diabetes mellitus with good control. RECOMMENDATIONS: 1. Would continue his current medications of carvedilol 25 mg b.i.d., losartan 100 mg daily, and Pr ocardia 30 mg daily. 2. Encourage compliance with his phosphate binders. 3. Dialysis this morning. 4. Anticipate ability to be discharged sometime today. Dictated By: NAUN LANDRY MD, MM/SCOTT Conf#: [id number] DID#: [id number]
[2016-04-29] MEDS: GABAPENTIN 300 MG CAP PO SCH (09:00)
[2016-04-29] MEDS: LOSARTAN 50 MG TAB PO SCH (09:00)
[2016-04-29] MEDS: NIFEdipine (XL) 30 MG TAB PO SCH (09:00)
[2016-04-29] MEDS: INSULIN GLARGINE [LANtus] 3 ML PEN SC SCH (09:00)
--- NOTE | 2016-04-29 10:29 | PN ---
Date/Time of Note Date/Time of Note DATE: 04/29/16 TIME: 10:12 Assessment/Plan VTE Prophylaxis VTE Prophylaxis Intervention: SCD's Lines/Catheters [facility]from [facility] [place] Urinary Cath still in place: No Assessment/Plan Assessment/Plan 50-year-old male : 1. CHF exacerbation likely with diastolic and systolic dysfunction with EF 40% and respiratory distress 2ry to volume overload, dietary indiscretion (after eating tamales and going through 1 bottle of Champagne) on Sirisha and day. On HD and volume status much better today. HD today Patient seemed to have similar episode earlier in March too.. Compliance may be an ongoing issue 2. Hypertensive Emergency: s/p HD and BP meds added and adjusted OFF Nitro gtt and stable x 24 hrs so will transfer to Tele 3. Hyperkalemia: resolving with HD Renal diet 4. Diabetes Mellitus: SSI and back on Lantus A1c 10.5, was 9.5 earlier this month Patient non compliant with diet at least .... Prophylaxis: SCDs for DVT ppx and PPI for GI ppx Disposition: Transfer to telemetry today Subjective 24 Hr Interval Summary Free Text/Dictation Patient feels better today and BP better controlled, off Nitro gtt HD today and transferring to Tele today Exam/Review of Systems Vital Signs Vitals Vital Signs Date Time Temp Pulse Resp B/P Pulse Ox O2 Delivery O2 Flow Rate FiO2 04/29/16 06:00 76 17 100 Nasal Cannula 04/29/16 04:00 98.2 04/29/16 03:00 2.0 04/27/16 09:30 40 Intake and Output 04/28/16 04/28/16 04/29/16 15:00 23:00 07:00 Intake Total 636 ml 540 ml 60 ml Output Total 0 ml 0 ml 0 ml Balance 636 ml 540 ml 60 ml Exam Constitutional: alert, oriented, well developed Respiratory: diminished breath sounds (bases bilaterally ) Cardiovascular: nl pulses, regular rate and rhythm Gastrointestinal: non-tender, soft Musculoskeletal: nl extremities to inspection Extremities: normal pulses, other (still with some anasarca ) Neurological: LIEUTENANT FIREFIGHTER II-XII intact, nl mental status, nl speech, nl strength Results Result Diagram: 04/29/16 0425 04/29/16 0425 Results 24 hrs Laboratory Tests Test 04/28/16 11:42 04/28/16 14:00 04/28/16 17:34 04/28/16 21:27 Bedside Glucose 113 109 150 Anion Gap 26 H Blood Urea Nitrogen 94 H Calcium Level 7.3 L Carbon Dioxide Level 24 Chloride Level 87 L Creatinine 12.96 H Glucose Level 105 Potassium Level 5.4 H Sodium Level 132 L Test 04/29/16 04:25 04/29/16 08:02 Anion Gap 29 H Basophils # 0.1 Basophils % 0.5 Blood Morphology Comment Blood Urea Nitrogen 109 H Calcium Level 7.5 L Carbon Dioxide Level 22 Chloride Level 84 L Creatinine 15.00 #H Eosinophils # 0.2 Eosinophils % 2.0 Glucose Level 169 Hematocrit 32.0 L Hemoglobin 10.7 L Lymphocytes # 2.1 Lymphocytes % 20.9 Magnesium Level 2.1 Mean Corpuscular Hemoglobin 29.8 Mean Corpuscular Hemoglobin Concent 33.6 Mean Corpuscular Volume 88.8 Mean Platelet Volume 8.7 Monocytes # 0.8 Monocytes % 8.1 Neutrophils # 7.0 Neutrophils % 68.5 Nucleated Red Blood Cells # 0.0 Nucleated Red Blood Cells % 0.0 Phosphorus Level 11.8 #H Platelet Count 185 Potassium Level 5.1 Red Blood Count 3.60 L Red Cell Distribution Width 17.0 H Sodium Level 130 L White Blood Count 10.3 Bedside Glucose 172 Medications Medications Current Medications Insulin Glargine (Lantus) 30 unit DAILY SC Last administered on 04/28/16 08:47 ; Admin Dose 30 UNIT; Start 04/27/16 at 09:00 Gabapentin (Neurontin) 300 mg DAILY PO Last administered on 04/28/16 08:45; Admin Dose 300 MG; Start 04/27/16 at 09:00 Pantoprazole (Protonix Tab) 40 mg DAILY@06 PO Last administered on 04/29/16 05: 43; Admin Dose 40 MG; Start 04/27/16 at 06:00 Ondansetron HCl (Zofran Inj) 4 mg Q6H PRN IV NAUSEA; Start 04/27/16 at 06:00 Zolpidem Tartrate (Ambien) 5 mg HS PRN PO INSOMNIA; Start 04/27/16 at 06:00 Diagnostic Test (Pha) (Accucheck) 1 ea 02 XX Last administered on 04/28/16 02: 00; Admin Dose 1 EA; Start 04/28/16 at 02:00 Miscellaneous Information 1 ea NOTE XX ; Start 04/27/16 at 07:00 Glucose (Glutose) 15 gm Q15M PRN PO DECREASED GLUCOSE; Start 04/27/16 at 07:00 Glucose (Glutose) 22.5 gm Q15M PRN PO DECREASED GLUCOSE; Start 04/27/16 at 07:00 Dextrose (D50w Syringe) 25 ml Q15M PRN IV DECREASED GLUCOSE; Start 04/27/16 at 07:00 Dextrose (D50w Syringe) 50 ml Q15M PRN IV DECREASED GLUCOSE; Start 04/27/16 at 07:00 Glucagon (Glucagen) 1 mg Q15M PRN IM DECREASED GLUCOSE; Start 04/27/16 at 07:00 Glucose (Glutose) 15 gm Q15M PRN BUCCAL DECREASED GLUCOSE; Start 04/27/16 at 07: 00 Acetaminophen/ Hydrocodone Bitart 1 tab 1 tab Q4H PRN PO PAIN LEVEL 6-10 Last administered on 04/29/16 09:19; Admin Dose 1 TAB; Start 04/27/16 at 09:00 Nitroglycerin/ Dextrose (Nitroglycerin 50 Mg/D5W (Pmx)) 250 ml @ 0 mls/hr TITRATE IV Last administered on 04/28/16 04:49; Admin Dose 28.5 MLS/HR; Start 04/27/16 at 19:30 Morphine Sulfate (morphine) 2 mg Q4H PRN IV pain Last administered on 04/29/16 05:42; Admin Dose 2 MG; Start 04/28/16 at 02:00 Carvedilol (Coreg) 25 mg BID PO Last administered on 04/28/16 21:25; Admin Dose 25 MG; Start 04/28/16 at 09:00 Losartan Potassium (Cozaar) 100 mg DAILY PO Last administered on 04/28/16 08:45 ; Admin Dose 100 MG; Start 04/28/16 at 09:00 Nifedipine (Procardia Xl) 30 mg DAILY PO Last administered on 04/28/16 08:46; Admin Dose 30 MG; Start 04/28/16 at 09:00 Clonidine (Catapres) 0.1 mg Q4H PRN PO ELEVATED BLOOD PRESSURE; Start 04/28/16 at 08:00 Procedures Procedures Echocardiogram Report Patient Name: KIKI TINEO Gender: Male Date: 1965 Study Date: 28-Apr-2016 Assurance Manager: Jordi Wakefield RDCS Location: [facility] Ref. Physician: SHIRIN NANCE Quality: Adequate Procedures: Transthoracic echocardiogram with complete 2D, M-Mode, and doppler examination. Indications: Congestive Heart Failure. 2D/M Mode Doppler Measurement Value Normal Ranges Measurement Value Normal Ranges LVIDd 2D 6.6 3.5 - 5.6 cm AV Peak Vinicio 1.7 m/sec LVIDs 2D 3.8 2.1 - 4.1 cm AV Peak PG 11.8 mmHg LVPWd 2D 1.1 0.6 - 1.1 cm LVOT Peak Vinicio 1.3 m/sec IVSd 2D 1.2 0.6 - 1.1 cm LVOT Peak PG 7.0 mmHg AoR Diam 2D 3.3 2.0 - 3.7 cm MV E Peak Vinicio 0.9 m/sec EDV 2D 222.0 cm3 MV A Peak Vinicio 1.0 m/sec ESV 2D 55.4 cm3 MV E/A 0.9 LA Dimen 2D 3.9 2.3 - 4.0 cm MV Decel Time 212 msec MV Decel [place] 4 MV E/A 0.9 TR Peak Vinicio 2.9 m/sec TR Peak PG 33.6 mmHg RVSP 42.0 mmHg Findings Left Ventricle: Mild concentric left ventricular hypertrophy. Mild enlargement of left ventricle cavity. Mild to moderate global left ventricular systolic dysfunction. Ejection fraction is visually estimated at 40 %. Tissue Doppler/Mitral Doppler indices are consistent with impaired relaxation (Stage I diastolic dysfunction). Right Ventricle: Normal right ventricular size. Normal right ventricular systolic function. Left Atrium: The left atrium is normal in size. Right Atrium: The right atrium is normal in size. Mitral Valve: Mitral valve leaflets appear mildly thickened. Mild mitral annular calcification. Mild mitral valve regurgitation. Aortic Valve: Normal appearance of the aortic valve. No significant aortic stenosis or insufficiency. Tricuspid Valve: Normal appearance of the tricuspid valve. Estimated peak PA systolic pressure 42 mmHg. There is mild tricuspid regurgitation. Pericardium: Normal pericardium with no significant pericardial effusion. Aorta: Normal aortic root. IVC: Dilated IVC with respiratory collapse consistent with elevated right atrial pressure. Conclusions 1. Mild concentric left ventricular hypertrophy. Mild enlargement of left ventricle cavity. Mild to moderate global left ventricular systolic dysfunction. Ejection fraction is visually estimated at 40 %. Tissue Doppler/Mitral Doppler indices are consistent with impaired relaxation (Stage I diastolic dysfunction). 2. Normal right ventricular size. Normal right ventricular systolic function. 3. The left atrium is normal in size. 4. The right atrium is normal in size. 5. Mild mitral valve regurgitation. 6. No significant aortic stenosis or insufficiency. 7. Estimated peak PA systolic pressure 42 mmHg. There is mild tricuspid regurgitation. 8. Normal pericardium with no significant pericardial effusion. Electronically Signed By: Carlos Latif 28-Apr-2016 15:20:36 -0800 ROGELIO NANCE Apr 29, 2016 10:23
[2016-04-30] VITALS (12 sets, daily range): BP systolic 111–141; BP diastolic 62–77; PULSE 68–73; RESP 16–19
[2016-04-30] MEDS: ACCUCHECK AT 2AM (Patients on SS coverage) XX SCH (02:00)
[2016-04-30] MEDS: morphine 2 MG INJ IV PRN ×3 (03:11→23:01)
[2016-04-30] MEDS: PANTOPRAZOLE (EC) 40 MG TAB PO SCH (06:41)
[2016-04-30 07:26] LABS: BASOPHILS % 0.4 % (0.0-2.0); EOSINOPHILS # 0.3 10^3/ul (0.0-0.5); EOSINOPHILS % 3.3 % (0.0-7.0); HEMATOCRIT 31.8 % (42.0-52.0); HEMOGLOBIN 10.5 g/dl (14.0-18.0); LYMPHOCYTES # 2.6 10^3/ul (0.8-2.9); LYMPHOCYTES % 26.7 % (15.0-51.0); MEAN CORPUSCULAR HEMOGLOBIN 29.5 pg (29.0-33.0); MEAN CORPUSCULAR VOLUME 89.5 fl (82.0-101.0); MEAN PLATELET VOLUME 9.4 fl (7.4-10.4); MONOCYTE # 0.8 10^3/ul (0.3-0.9); MONOCYTES % 8.8 % (0.0-11.0); NEUTROPHIL # 5.9 10^3/ul (1.6-7.5); NEUTROPHILS % 60.8 % (39.0-77.0); PLATELET COUNT 177 10^3/UL (140-440); RED BLOOD COUNT 3.55 10^6/ul (4.70-6.10); RED CELL DISTRIBUTION WIDTH 16.7 % (11.5-14.5); UNCORRECTED WBC 9.6 10^3/ul (4.8-10.8); WHITE BLOOD COUNT 9.6 10^3/ul (4.8-10.8)
[2016-04-30 07:34] LABS: CONDITION 1; LH ANALYZER COMMENTS 1
[2016-04-30 08:14] LABS: POTASSIUM 5.6 mmol/L (3.5-5.1)
[2016-04-30 08:16] LABS: MAGNESIUM 2.1 mg/dl (1.7-2.5); PHOSPHORUS 11.4 mg/dl (2.5-4.9)
[2016-04-30 08:17] LABS: CALCIUM 8.3 mg/dl (8.4-10.2)
[2016-04-30] MEDS: SEVELAMER CARBONATE 0.8 GM PKT PO SCH ×3 (08:20→17:17)
[2016-04-30] MEDS: INSULIN ASPART [NOVOLOG] 3 ML PEN SC SCH ×4 (08:21→20:44)
[2016-04-30] MEDS: CALCIUM ACETATE 667 MG CAP PO SCH ×3 (08:22→17:16)
[2016-04-30] MEDS: GABAPENTIN 300 MG CAP PO SCH (08:22)
[2016-04-30] MEDS: INSULIN GLARGINE [LANtus] 3 ML PEN SC SCH (08:22)
[2016-04-30] MEDS: NIFEdipine (XL) 30 MG TAB PO SCH (08:23)
[2016-04-30] MEDS: LOSARTAN 50 MG TAB PO SCH (08:23)
[2016-04-30 08:24] LABS: CREATININE 13.29 mg/dl (0.61-1.24)
--- NOTE | 2016-04-30 11:43 | CONS ---
DATE OF ADMISSION: 04/27/2016 DATE OF CONSULTATION: NEPHROLOGY NOTE SUBJECTIVE: The patient has been transferred up to the telemetry floor. He has no chest pain or sh ortness of breath. Blood pressure is now controlled on his current oral medications. He has not re ally been up ambulating, however. PHYSICAL EXAMINATION: VITAL SIGNS: Afebrile, blood pressure 140/74, heart rate 72 and regular, respirations are 12 and un labored, O2 saturation is 96%. SKIN: Warm, well perfused. No lesions. HEAD: Normocephalic. EYES: Pupils are round and reactive. LUNGS: Clear. HEART: S1, S2, regular rate and rhythm. ABDOMEN: Soft. EXTREMITIES: No cyanosis, clubbing, or edema. LABORATORY DATA: White count 9.6, hemoglobin 10.5, hematocrit 31.8, platelet count 177,000. Potass ium is 5.6, glucose is 203. PROBLEM LIST: 1. Hypertension, out of control, now well controlled on oral medications, off IV nitroglycerin. 2. Mild hyperkalemia. 3. Congestive heart failure since resolved. 4. End-stage renal disease. 5. Hyperphosphatemia. RECOMMENDATIONS: 1. Plan for dialysis tomorrow. 2. Update his phosphorus binders. 3. Continue current antihypertensive medications. 4. Hopefully can be discharged tomorrow post dialysis. Dictated By: NAUN LANDRY MD, MM/SCOTT Conf#: [id number] DID#: [id number]
[2016-04-30] MEDS ORDERED: NA POLYST SULFON 15 GM/60 ML BTL PO ONE (13:00)
--- NOTE | 2016-04-30 14:03 | PN ---
Date/Time of Note Date/Time of Note DATE: 04/30/16 TIME: 13:52 Assessment/Plan VTE Prophylaxis VTE Prophylaxis Intervention: SCD's Lines/Catheters IV Catheter Type (from Nrs): Saline Lock Urinary Cath still in place: No Assessment/Plan Assessment/Plan 50-year-old male : 1. CHF exacerbation likely with diastolic and systolic dysfunction with EF 40% and respiratory distress 2ry to volume overload, dietary indiscretion (after eating tamales and going through 1 bottle of Champagne) on Sirisha and day. Now on RA and no RUSSELL On HD and volume status much better today. HD tomorrow next with plan to discharge after HD. Patient seemed to have similar episode earlier in March too.. Compliance may be an ongoing issue 2. Hypertensive Emergency: s/p HD and BP meds added and adjusted and BP now controlled. 3. Hyperkalemia: resolving with HD but again with K up to 5.6 (post HD yesterday ). Kayexalate 60 gr po x 1 and HD tomorrow Continue renal diet 4. Diabetes Mellitus: SSI and back on Lantus A1c 10.5, was 9.5 earlier this month Patient non compliant with diet at least .... Prophylaxis: SCDs for DVT ppx and PPI for GI ppx Disposition: Kayexalate today, HD tomorrow and d/c plan after HD tomorrow. Subjective 24 Hr Interval Summary Free Text/Dictation Patient feels better today on RA at rest and with ambulation K up to 5.6 and HD due tomorrow Exam/Review of Systems Vital Signs Vitals Vital Signs Date Time Temp Pulse Resp B/P Pulse Ox O2 Delivery O2 Flow Rate FiO2 04/30/16 12:37 98.3 79 19 141/72 94 04/30/16 03:32 2.0 04/29/16 21:00 Nasal Cannula 04/27/16 09:30 40 Intake and Output 04/29/16 04/29/16 04/30/16 15:00 23:00 07:00 Intake Total 1000 ml 240 ml Output Total 6325 ml Balance -5325 ml 240 ml Exam Constitutional: alert, oriented, well developed Cardiovascular: nl pulses, regular rate and rhythm Gastrointestinal: non-tender, soft Musculoskeletal: nl extremities to inspection Extremities: normal pulses, other (no edema, clubbing or cyanosis ) Neurological: HOG SCALDER II-XII intact, nl mental status, nl speech, nl strength Results Result Diagram: 04/30/16 0640 04/30/16 0640 Results 24 hrs Laboratory Tests Test 04/29/16 17:06 04/29/16 20:01 04/30/16 06:40 04/30/16 07:57 Bedside Glucose 297 H 181 203 Anion Gap 30 H Basophils # 0.0 Basophils % 0.4 Blood Morphology Comment Blood Urea Nitrogen 96 H Calcium Level 8.3 L Carbon Dioxide Level 21 Chloride Level 86 L Creatinine 13.29 H Eosinophils # 0.3 Eosinophils % 3.3 Glucose Level 191 Hematocrit 31.8 L Hemoglobin 10.5 L Lymphocytes # 2.6 Lymphocytes % 26.7 Magnesium Level 2.1 Mean Corpuscular Hemoglobin 29.5 Mean Corpuscular Hemoglobin Concent 33.0 Mean Corpuscular Volume 89.5 Mean Platelet Volume 9.4 Monocytes # 0.8 Monocytes % 8.8 Neutrophils # 5.9 Neutrophils % 60.8 Nucleated Red Blood Cells # 0.0 Nucleated Red Blood Cells % 0.0 Phosphorus Level 11.4 H Platelet Count 177 Potassium Level 5.6 H Red Blood Count 3.55 L Red Cell Distribution Width 16.7 H Sodium Level 131 L White Blood Count 9.6 Test 04/30/16 12:23 Bedside Glucose 152 Medications Medications Current Medications Insulin Glargine (Lantus) 30 unit DAILY SC Last administered on 04/30/16 08:22 ; Admin Dose 30 UNIT; Start 04/27/16 at 09:00 Gabapentin (Neurontin) 300 mg DAILY PO Last administered on 04/30/16 08:22; Admin Dose 300 MG; Start 04/27/16 at 09:00 Pantoprazole (Protonix Tab) 40 mg DAILY@06 PO Last administered on 04/30/16 06: 41; Admin Dose 40 MG; Start 04/27/16 at 06:00 Ondansetron HCl (Zofran Inj) 4 mg Q6H PRN IV NAUSEA; Start 04/27/16 at 06:00 Zolpidem Tartrate (Ambien) 5 mg HS PRN PO INSOMNIA; Start 04/27/16 at 06:00 Diagnostic Test (Pha) (Accucheck) 1 ea XX Last administered on 04/28/16 02: 00; Admin Dose 1 EA; Start 04/28/16 at 02:00 Miscellaneous Information 1 ea NOTE XX ; Start 04/27/16 at 07:00 Glucose (Glutose) 15 gm Q15M PRN PO DECREASED GLUCOSE; Start 04/27/16 at 07:00 Glucose (Glutose) 22.5 gm Q15M PRN PO DECREASED GLUCOSE; Start 04/27/16 at 07:00 Dextrose (D50w Syringe) 25 ml Q15M PRN IV DECREASED GLUCOSE; Start 04/27/16 at 07:00 Dextrose (D50w Syringe) 50 ml Q15M PRN IV DECREASED GLUCOSE; Start 04/27/16 at 07:00 Glucagon (Glucagen) 1 mg Q15M PRN IM DECREASED GLUCOSE; Start 04/27/16 at 07:00 Glucose (Glutose) 15 gm Q15M PRN BUCCAL DECREASED GLUCOSE; Start 04/27/16 at 07: 00 Acetaminophen/ Hydrocodone Bitart ([place] (5/325)) 1 tab Q4H PRN PO PAIN LEVEL 6 -10 Last administered on 04/29/16 09:19; Admin Dose 1 TAB; Start 04/27/16 at 09: 00 Morphine Sulfate (morphine) 2 mg Q4H PRN IV pain Last administered on 04/30/16 12:16; Admin Dose 2 MG; Start 04/28/16 at 02:00 Carvedilol (Coreg) 25 mg BID PO Last administered on 04/30/16 08:24; Admin Dose 25 MG; Start 04/28/16 at 09:00 Losartan Potassium (Cozaar) 100 mg DAILY PO Last administered on 04/30/16 08:23 ; Admin Dose 100 MG; Start 04/28/16 at 09:00 Nifedipine (Procardia Xl) 30 mg DAILY PO Last administered on 04/30/16 08:23; Admin Dose 30 MG; Start 04/28/16 at 09:00 Clonidine (Catapres) 0.1 mg Q4H PRN PO ELEVATED BLOOD PRESSURE; Start 04/28/16 at 08:00 ROGELIO NANCE Apr 30, 2016 14:02
[2016-05-01] VITALS (18 sets, daily range): BP systolic 127–172; BP diastolic 62–83; PULSE 67–82; RESP 16–19
[2016-05-01] MEDS: ACCUCHECK AT 2AM (Patients on SS coverage) XX SCH (02:00)
[2016-05-01 06:11] LABS: POTASSIUM 5.4 mmol/L (3.5-5.1)
[2016-05-01 06:14] LABS: BASOPHILS % 0.3 % (0.0-2.0); EOSINOPHILS # 0.3 10^3/ul (0.0-0.5); EOSINOPHILS % 3.7 % (0.0-7.0); HEMATOCRIT 31.7 % (42.0-52.0); HEMOGLOBIN 10.6 g/dl (14.0-18.0); LYMPHOCYTES # 2.1 10^3/ul (0.8-2.9); LYMPHOCYTES % 23.2 % (15.0-51.0); MEAN CORPUSCULAR HEMOGLOBIN 30.3 pg (29.0-33.0); MEAN CORPUSCULAR HGB CONC 33.6 g/dl (32.0-37.0); MEAN CORPUSCULAR VOLUME 90.1 fl (82.0-101.0); MEAN PLATELET VOLUME 9.4 fl (7.4-10.4); MONOCYTE # 0.7 10^3/ul (0.3-0.9); MONOCYTES % 7.8 % (0.0-11.0); NEUTROPHIL # 5.8 10^3/ul (1.6-7.5); PLATELET COUNT 180 10^3/UL (140-440); RED BLOOD COUNT 3.51 10^6/ul (4.70-6.10); RED CELL DISTRIBUTION WIDTH 16.9 % (11.5-14.5); UNCORRECTED WBC 8.9 10^3/ul (4.8-10.8); WHITE BLOOD COUNT 8.9 10^3/ul (4.8-10.8)
[2016-05-01 06:19] LABS: CONDITION 1; LH ANALYZER COMMENTS 1
[2016-05-01] MEDS: PANTOPRAZOLE (EC) 40 MG TAB PO SCH (06:25)
[2016-05-01 06:27] LABS: MAGNESIUM 2.1 mg/dl (1.7-2.5)
[2016-05-01 06:31] LABS: CREATININE 15.94 mg/dl (0.61-1.24)
[2016-05-01 06:38] LABS: PHOSPHORUS 13.2 mg/dl (2.5-4.9)
[2016-05-01] MEDS: morphine 2 MG INJ IV PRN (07:26)
[2016-05-01] MEDS: SEVELAMER CARBONATE 0.8 GM PKT PO SCH ×3 (07:30→17:39)
--- NOTE | 2016-05-01 08:37 | CONS ---
DATE OF ADMISSION: 04/27/2016 DATE OF CONSULTATION: NEPHROLOGY NOTE The patient feels in excellent health. His blood pressure and potassium are now controlled. PHYSICAL EXAMINATION: VITAL SIGNS: He is afebrile, blood pressure 155/80, heart rate 72 and regular, respirations are 12 and unlabored, O2 saturation is 97% on room air. SKIN: No new rashes. LUNGS: Clear. HEART: S1, S2. ABDOMEN: Soft. EXTREMITIES: Well-functioning left upper extremity AV fistula. LABORATORY DATA: White count 8.9, hemoglobin 10.6, hematocrit 31.7, platelet count 180,000. Potass ium is 5.4, calcium is 8.0, phosphorus 13.2, magnesium 2.1. PROBLEM LIST: 1. End-stage renal disease for planned hemodialysis today, his usual day. 2. Hyperphosphatemia. Again, reviewed diet issues and the necessity of take his binders. 3. Hyperkalemia. Resolved. 4. Congestive heart failure. Resolved. 5. Hypertension. Well controlled on his current medications. RECOMMENDATIONS: 1. Dialysis today. 2. Would anticipate discharge post-dialysis. 3. He should continue the current medications here in the hospital for his excellent blood pressure control. Dictated By: NAUN LANDRY MD, MM/SCOTT Conf#: [id number] DID#: [id number]
[2016-05-01] MEDS: CALCIUM ACETATE 667 MG CAP PO SCH ×3 (08:48→17:39)
[2016-05-01] MEDS: GABAPENTIN 300 MG CAP PO SCH (08:48)
[2016-05-01] MEDS: LOSARTAN 50 MG TAB PO SCH (08:49)
[2016-05-01] MEDS: NIFEdipine (XL) 30 MG TAB PO SCH (08:50)
[2016-05-01] MEDS: INSULIN ASPART [NOVOLOG] 3 ML PEN SC SCH ×3 (08:54→17:43)
[2016-05-01] MEDS: INSULIN GLARGINE [LANtus] 3 ML PEN SC SCH (08:55)
--- NOTE | 2016-05-01 13:58 | PDOCDIS ---
Discharge Instructions CONDITION Patient Condition: Stable HOME CARE INSTRUCTIONS: Special Diet: 1800 SOFIE RENAL ACTIVITY: Activity Restrictions: No Restrictions FOLLOW UP/APPOINTMENTS Appointments Follow up with PCP within 1 week Follow up with outpatient HD Wednesday ROGELIO NANCE May 01, 2016 13:58
--- NOTE | 2016-05-01 13:58 | PN ---
Date/Time of Note Date/Time of Note DATE: 05/01/16 TIME: 13:52 Assessment/Plan VTE Prophylaxis VTE Prophylaxis Intervention: SCD's Lines/Catheters IV Catheter Type (from Nrs): Saline Lock Urinary Cath still in place: No Assessment/Plan Assessment/Plan 50-year-old male : 1. CHF exacerbation likely with diastolic and systolic dysfunction with EF 40% and respiratory distress 2ry to volume overload, dietary indiscretion (after eating tamales and going through 1 bottle of Champagne) on Sirisha and day. Now on RA and no RUSSELL On HD currently and euvolemic BP stable and will discharge home today with PCP and Nephrology follow up, next HD due Wednesday Patient seemed to have similar episode earlier in March too.. Compliance may be an ongoing issue 2. Hypertensive Emergency: s/p HD and BP meds added and adjusted and BP now controlled. 3. Hyperkalemia: resolving with HD, s/p Kayexalate yesterday, K down to 5.4 HD today Continue renal diet 4. Diabetes Mellitus: SSI and back on Lantus A1c 10.5, was 9.5 earlier this month Patient non compliant with diet at least .... Prophylaxis: SCDs for DVT ppx and PPI for GI ppx Disposition: D/c home after HD today. Subjective 24 Hr Interval Summary Free Text/Dictation Patient doing well D/c home today and follow up with PCP and outpatient HD Exam/Review of Systems Vital Signs Vitals Vital Signs Date Time Temp Pulse Resp B/P Pulse Ox O2 Delivery O2 Flow Rate FiO2 05/01/16 12:22 72 05/01/16 11:44 98.4 19 143/76 95 04/30/16 03:32 2.0 04/29/16 21:00 Nasal Cannula 04/27/16 09:30 40 Intake and Output 04/30/16 04/30/16 05/01/16 15:00 23:00 07:00 Intake Total 400 ml Output Total 0 ml Balance 400 ml Exam Constitutional: alert, oriented, well developed Cardiovascular: nl pulses, regular rate and rhythm Gastrointestinal: non-tender, soft Musculoskeletal: nl extremities to inspection Extremities: normal pulses, other (no edema, clubbing or cyanosis ) Neurological: RESIDENT CARE AID II-XII intact, nl mental status, nl speech, nl strength Results Result Diagram: 05/01/16 0530 05/01/16 0530 Results 24 hrs Laboratory Tests Test 04/30/16 17:19 04/30/16 20:42 05/01/16 05:30 05/01/16 07:49 Bedside Glucose 157 141 149 Anion Gap 33 H Basophils # 0.0 Basophils % 0.3 Blood Morphology Comment Blood Urea Nitrogen 117 H Calcium Level 8.0 L Carbon Dioxide Level 25 Chloride Level 85 L Creatinine 15.94 #H Eosinophils # 0.3 Eosinophils % 3.7 Glucose Level 172 Hematocrit 31.7 L Hemoglobin 10.6 L Lymphocytes # 2.1 Lymphocytes % 23.2 Magnesium Level 2.1 Mean Corpuscular Hemoglobin 30.3 Mean Corpuscular Hemoglobin Concent 33.6 Mean Corpuscular Volume 90.1 Mean Platelet Volume 9.4 Monocytes # 0.7 Monocytes % 7.8 Neutrophils # 5.8 Neutrophils % 65.0 Nucleated Red Blood Cells # 0.0 Nucleated Red Blood Cells % 0.0 Phosphorus Level 13.2 H Platelet Count 180 Potassium Level 5.4 H Red Blood Count 3.51 L Red Cell Distribution Width 16.9 H Sodium Level 138 White Blood Count 8.9 Test 05/01/16 12:11 Bedside Glucose 104 Medications Medications Current Medications Insulin Glargine (Lantus) 30 unit DAILY SC Last administered on 05/01/16 08:55 ; Admin Dose 30 UNIT; Start 04/27/16 at 09:00 Gabapentin (Neurontin) 300 mg DAILY PO Last administered on 05/01/16 08:48; Admin Dose 300 MG; Start 04/27/16 at 09:00 Pantoprazole (Protonix Tab) 40 mg DAILY@06 PO Last administered on 05/01/16 06: 25; Admin Dose 40 MG; Start 04/27/16 at 06:00 Ondansetron HCl (Zofran Inj) 4 mg Q6H PRN IV NAUSEA; Start 04/27/16 at 06:00 Zolpidem Tartrate (Ambien) 5 mg HS PRN PO INSOMNIA; Start 04/27/16 at 06:00 Diagnostic Test (Pha) (Accucheck) 1 ea 02 XX Last administered on 04/28/16 02: 00; Admin Dose 1 EA; Start 04/28/16 at 02:00 Miscellaneous Information 1 ea NOTE XX ; Start 04/27/16 at 07:00 Glucose (Glutose) 15 gm Q15M PRN PO DECREASED GLUCOSE; Start 04/27/16 at 07:00 Glucose (Glutose) 22.5 gm Q15M PRN PO DECREASED GLUCOSE; Start 04/27/16 at 07:00 Dextrose (D50w Syringe) 25 ml Q15M PRN IV DECREASED GLUCOSE; Start 04/27/16 at 07:00 Dextrose (D50w Syringe) 50 ml Q15M PRN IV DECREASED GLUCOSE; Start 04/27/16 at 07:00 Glucagon (Glucagen) 1 mg Q15M PRN IM DECREASED GLUCOSE; Start 04/27/16 at 07:00 Glucose (Glutose) 15 gm Q15M PRN BUCCAL DECREASED GLUCOSE; Start 04/27/16 at 07: 00 Acetaminophen/ Hydrocodone Bitart ([place] (5/325)) 1 tab Q4H PRN PO PAIN LEVEL 6 -10 Last administered on 04/29/16 09:19; Admin Dose 1 TAB; Start 04/27/16 at 09: 00 Morphine Sulfate (morphine) 2 mg Q4H PRN IV pain Last administered on 05/01/16 07:26; Admin Dose 2 MG; Start 04/28/16 at 02:00 Carvedilol (Coreg) 25 mg BID PO Last administered on 05/01/16 08:50; Admin Dose 25 MG; Start 04/28/16 at 09:00 Losartan Potassium (Cozaar) 100 mg DAILY PO Last administered on 05/01/16 08:49 ; Admin Dose 100 MG; Start 04/28/16 at 09:00 Nifedipine (Procardia Xl) 30 mg DAILY PO Last administered on 05/01/16 08:50; Admin Dose 30 MG; Start 04/28/16 at 09:00 Clonidine (Catapres) 0.1 mg Q4H PRN PO ELEVATED BLOOD PRESSURE; Start 04/28/16 at 08:00 ROGELIO NANCE May 01, 2016 13:57
[2016-05-01] MEDS ORDERED: SEVE0.8P PO (14:04)
[2016-05-01] MEDS ORDERED: CARV25TA79 PO (14:04)
[2016-05-01] MEDS ORDERED: NIFE30TA2 PO (14:04)
[2016-05-01] MEDS ORDERED: LOSA100T7 PO (14:04)
--- NOTE | 2016-05-02 13:01 | DS ---
DATE OF ADMISSION: 04/27/2016 DATE OF DISCHARGE: 05/01/2016 CHIEF COMPLAINT ON ADMISSION: Shortness of breath. BRIEF HISTORY OF PRESENT ILLNESS: This is a 50-year-old male with history of hypertension, diabetes mellitus type 2, end-stage renal disease on hemodialysis for the past 3 years, systolic and diastol ic heart failure who came to the emergency department with complaint of shortness of breath, lower e xtremity pain. The patient was found to be in volume overload and also severely hypertensive and in hypertensive urgency. He was admitted to the intensive care unit on a nitroglycerin drip requiring emergent dialysis due to also hyperkalemia. HOSPITAL COURSE: The patient was admitted to ICU. He was dialyzed emergently due to hyperkalemia w ith a potassium of about 6. He was started on nitro drip at first, then once he was more stable wit hin 24 hours, started on multiple oral medication and he was able to be titrated off the nitro drip. He had multiple dialysis sessions with removal of a large amount of fluid. He became euvolemic on room air with no further respiratory issues. The patient has been admitted earlier this month with an episode of hyperkalemia. Therefore, compliance is a problem with him. His A1c is at 10.5, it w as 9.5 a few weeks prior. He does not seem to adhere to a diabetic diet or renal diet based on the report he gave. He was again educated regarding the importance to be compliant with his renal diet and avoid eating tamales and drinking alcohol. His blood pressure is stable. Therefore, the patien t is discharged home after dialysis today to resume his outpatient dialysis schedule and Wednesday, Wed, Wednesday. DISPOSITION: Discharge home. DISCHARGE CONDITION: Stable. DISCHARGE DIET: Renal and diabetic diet. DISCHARGE ACTIVITY: Resume home activity. FOLLOWUP: The patient is to follow up with his primary care physician within 1 week and follow up w ith outpatient dialysis on Wednesday. DISCHARGE DIAGNOSES 1. Congestive heart failure exacerbation from diastolic and systolic dysfunction, now euvolemic. 2. End-stage renal disease on hemodialysis. 3. Hypertensive emergency, resolved. 4. Hypertension. 5. Hypokalemia, resolved postdialysis. 6. Diabetes mellitus, uncontrolled. 7. Noncompliance. DISCHARGE MEDICATIONS: 1. Carvedilol 25 mg p.o. b.i.d. 2. Losartan 100 mg p.o. daily. 3. Nifedipine XL 30 mg p.o. daily. 4. Renvela 2.4 grams p.o. q.a.c. 5. Ventolin HFA 2 puffs inhaled q.4h. as needed. 6. Alphagan eyedrops. 7. Calcium acetate 667 mg p.o. t.i.d. 8. Sensipar 60 mg p.o. daily. 9. Folic acid 1 mg p.o. daily. 10. Gabapentin 300 mg p.o. daily. 11. [place] 5/325 one tab p.o. q.4h. p.r.n. severe pain. 12. Insulin 10 units subcutaneously q.a.c. 13. Lantus 30 units subcutaneously daily. 14. Xalatan eyedrops. 15. Multivitamin 1 tab daily. 16. Protonix 40 mg p.o. daily. 17. Travatan eyedrops. Dictated By: ROGELIO OCONNOR/SCOTT Conf#: [id number] DID#: [id number]
== END 2016-05-01 16:30 | disposition home or self-care (01) | DRG 291 ==
LOC: E/R 00:05 → ICU 08:21 → TEL 04-29 17:03
PROVIDERS: ADMIT Internal Medicine; ATTEND Internal Medicine
PROC: 5A1D60Z (ICD-10-PCS; principal; 2016-04-27)
DX: I13.2 Hypertensive heart and chronic kidney disease with heart failure and with stage 5 chronic kidney disease, or end stage renal disease (principal); I50.43 Acute on chronic combined systolic (congestive) and diastolic (congestive) heart failure; N18.6 End stage renal disease; E11.22 Type 2 diabetes mellitus with diabetic chronic kidney disease; E11.65 Type 2 diabetes mellitus with hyperglycemia; I27.2 Other secondary pulmonary hypertension; I16.1 Hypertensive emergency; E87.5 Hyperkalemia; Z99.2 Dependence on renal dialysis; Z91.19 Patient's noncompliance with other medical treatment and regimen; Z91.11 Patient's noncompliance with dietary regimen; E83.39 Other disorders of phosphorus metabolism
CPT/HCPCS: 36415; 36600; 71010; 80048; 80053; 82550; 82553; 82803; 82962; 83036; 83735; 84100; 84484; 85025; 85610; 85730; 87081; 90935; 93005; 93306; 94660; 94664; 96374; 96375; 96376; 97116; 97162; 97530; J0610; J1170; J1815; J2270; J2405

== ENCOUNTER 2016-05-28 06:21 | Observation (INO) | payer MEDICARE, MEDICAID ==
[~2016-05-28] VITALS: Ht 180.3 cm; Wt 109.0 kg
[~2016-05-28 06:21] MED LIST changes: +BRIM15DR2 BOTH EYES; +CARV25TA79 PO; -CARV6.2579 PO; +FOLI-49 PO; +HYDR-906 PO; +LATA2.5D9 BOTH EYES; +LOSA100T7 PO; -LOSA50TA2 PO; +NEPH PO; +NIFE30TA2 PO; +SEVE0.8P PO; +TRAV2.5D BOTH EYES
[2016-05-28] MEDS ORDERED: morphine 4 MG/ML VIAL IV STA (07:43)
[2016-05-28] MEDS ORDERED: ONDANSETRON 4 MG INJ IV STA (07:43)
[2016-05-28] MEDS ORDERED: SOD CHLORIDE 0.9% 500 ML IV STA (07:43)
[2016-05-28 08:14] LABS: BASOPHILS % 0.3 % (0.0-2.0); EOSINOPHILS # 0.1 10^3/ul (0.0-0.5); EOSINOPHILS % 1.5 % (0.0-7.0); HEMOGLOBIN 11.9 g/dl (14.0-18.0); LYMPHOCYTES # 1.2 10^3/ul (0.8-2.9); LYMPHOCYTES % 13.3 % (15.0-51.0); MEAN CORPUSCULAR HEMOGLOBIN 30.4 pg (29.0-33.0); MEAN CORPUSCULAR HGB CONC 33.1 g/dl (32.0-37.0); MEAN CORPUSCULAR VOLUME 91.9 fl (82.0-101.0); MEAN PLATELET VOLUME 8.9 fl (7.4-10.4); MONOCYTE # 0.6 10^3/ul (0.3-0.9); MONOCYTES % 6.1 % (0.0-11.0); NEUTROPHIL # 7.1 10^3/ul (1.6-7.5); NEUTROPHILS % 78.8 % (39.0-77.0); PLATELET COUNT 223 10^3/UL (140-440); RED BLOOD COUNT 3.92 10^6/ul (4.70-6.10); RED CELL DISTRIBUTION WIDTH 16.8 % (11.5-14.5); UNCORRECTED WBC 9.1 10^3/ul (4.8-10.8); WHITE BLOOD COUNT 9.1 10^3/ul (4.8-10.8)
[2016-05-28 08:15] LABS: INR 0.98; PARTIAL THROMBOPLASTIN TIME 28.6 Sec (25.0-35.0)
[2016-05-28 08:18] LABS: ALBUMIN 4.7 g/dl (3.3-4.9)
[2016-05-28 08:20] LABS: BILIRUBIN,INDIRECT 0.1 mg/dl (0-1.1); BILIRUBIN,TOTAL 0.1 mg/dl (0.2-1.3); CREATININE 9.49 mg/dl (0.61-1.24)
[2016-05-28 08:21] LABS: ALBUMIN/GLOBULIN RATIO 1.34; CALCIUM 7.9 mg/dl (8.4-10.2)
[2016-05-28 08:22] LABS: CONDITION 1; LH ANALYZER COMMENTS 1
[2016-05-28 08:33] LABS: TROPONIN-I 0.016 ng/ml (0.00-0.12)
--- NOTE | 2016-05-28 08:45 | RADRPT ---
PROCEDURE: CT abdomen and pelvis without contrast. CLINICAL INDICATION: Left-sided abdominal pain. Back pain and weakness. TECHNIQUE: CT of the abdomen and pelvis without contrast was performed on a multidetector high-res olution CT scanner. Coronal and sagittal reformatted images were obtained from the axial source imag es. Images were reviewed on a high-resolution PACS workstation. The total exam CTDI equals 21.97 mGy and the total exam DLP equals 1421.13 mGy-cm. One or more of the following dose reduction techniques were used: - Automated exposure control. - Adjustment of the mA and/or kV according to patient size. - Use of iterative reconstruction technique. COMPARISON: Abdominal ultrasound dated 01/07/2013. FINDINGS: There are calcified hilar lymph nodes and there is a calcified nodule at the right lung base, consis tent with prior granulomatous disease. The visualized lungs are otherwise clear. The visualized he art is unremarkable. The liver is enlarged measuring 22.7 cm in length, but otherwise grossly unremarkable. There is no i ntra or extrahepatic biliary ductal dilatation. The gallbladder, spleen, pancreas, adrenal glands ar e grossly unremarkable. The kidneys are atrophic bilaterally. There is no nephrolithiasis or hydro nephrosis. There is no bowel wall thickening or evidence of obstruction. The appendix is not identified but the re are no secondary findings of appendicitis. There is no free intraperitoneal air or free fluid. T here is no mesenteric or retroperitoneal adenopathy. There are atherosclerotic changes of the aorta , which is nonaneurysmal. The prostate gland is enlarged measuring 5.1 cm in diameter. The seminal vesicles and urinary bladder are grossly unremarkable. There are small bilateral fat containing ing uinal hernias. There is mild to moderate multilevel degenerative spondylosis within the spine. There are no concern ing osseous lesions. IMPRESSION: 1. No acute abnormality or findings to suggest a source of the patient's symptoms. 2. Pulmonary findings of prior granulomatous disease. 3. Hepatomegaly. 4. Atrophic bilateral kidneys. 5. Enlarged prostate gland. Correlate with PSA. 6. Small bilateral fat containing inguinal hernias. 7. Vascular calcifications consistent with atherosclerosis. RPTAT: GG .Matthew Ohara MD, MD Date Time Electronically viewed and signed by .Matthew Ohara MD, on 05/28/2016 08:44 .P/
[2016-05-28 08:48] LABS: TOTAL PROTEIN 8.2 g/dl (6.1-8.1)
[2016-05-28 08:51] LABS: POTASSIUM 7.2 mmol/L (3.5-5.1)
--- NOTE | 2016-05-28 08:56 | RADRPT ---
PROCEDURE: XR Chest. CLINICAL INDICATION: Chest pain TECHNIQUE: Single portable view of the chest was obtained COMPARISON: 04/28/16 FINDINGS: The heart is enlarged. There is mild left lower lobe linear atelectasis. The lungs are otherwise clear. There is no pleural effusion or pneumothorax. RPTAT: AA IMPRESSION: Mild Cardiomegaly. Mild left lower lobe linear atelectasis. .Anoop Rivera MD, MD Date Time Electronically viewed and signed by .Anoop Rivera MD, MD on 05/28/2016 08:56 .S/
[2016-05-28] MEDS ORDERED: SODIUM BICARBONATE (IV ADD) 50 MEQ in DEXTROSE 5% 1,000 ML IV ONE (09:00)
[2016-05-28] MEDS ORDERED: DEXTROSE 50% 50 ML SYRINGE IV ONE (09:00)
[2016-05-28] MEDS ORDERED: INSULIN REGULAR, HUMAN 100 UNIT/1 ML 3ML VIAL IV ONE (09:00)
[2016-05-28] MEDS ORDERED: CA CHLORIDE 10% 10 ML SYRINGE IV ONE (09:00)
--- NOTE | 2016-05-28 09:17 | ERA ---
ER Documentation Chief Complaint Date/Time DATE: 05/28/16 TIME: 09:16 Chief Complaint nausea and vomiting since last night. gen weakness. no pain/hematemesis HPI Patient is a 50-year-old male who reports nausea vomiting and diarrhea since last night. He is a renal patient who states that he is so weak he is unable to ambulate at this time. He states he did get his dialysis as usual yesterday. He denies any fever, chest pain, shortness of breath, palpitations, coughing, congestion. He states that nothing seems to make this better or worse. He says he did have an episode like this once in the past but he had volume overload at that time. ROS All systems reviewed and are negative except as per history of present illness. Medications Home Meds Active Scripts Sevelamer Carbonate* (Renvela*) 0.8 Gm Powd.pack, 2.4 GM PO BEFORE MEALS for 30 Days, 3 Refills Prov:ROGELIO NANCE 05/01/16 Nifedipine (Procardia Xl) 30 Mg Tab.er.24, 30 MG PO DAILY for 30 Days, TAB 3 Refills Prov:ROGELIO NANCE 05/01/16 Losartan Potassium* (Losartan Potassium*) 100 Mg Tablet, 100 MG PO DAILY for 30 Days, TAB 3 Refills Prov:ROGELIO NANCE 05/01/16 Carvedilol* (Carvedilol*) 25 Mg Tablet, 25 MG PO BID for 30 Days, TAB 3 Refills Prov:ROGELIO NANCE 05/01/16 Insulin Aspart* (Novolog Insulin Pen*) 100 Unit/Ml Soln, 10 UNIT SC WITH MEALS for 30 Days Prov:MICHOACANO SUH NP 03/30/16 Insulin Glargine* (Lantus*) 100 Unit/Ml Soln, 30 UNIT SC DAILY for 30 Days Prov:MICHOACANO SUH NP 03/30/16 Albuterol Sulfate* (Ventolin HFA*) 18 Gm Hfa.aer.ad, 2 PUFF INHALATION Q4H, #1 INHALER Prov:PAOLO TIERNEY 02/19/16 Reported Medications Latanoprost (Xalatan) 2.5 Ml Drops, 1 DROP BOTH EYES BID, #1 BOTTLE 04/27/16 Travoprost* (Travatan Z*) 2.5 Ml Drops, 1 DROP BOTH EYES HS, #1 BOTTLE 04/27/16 Brimonidine Tartrate* (Alphagan P*) 0.1%-15 Ml Opht Drops, 1 DROP BOTH EYES BID , #1 EA 04/27/16 Hydrocodone/Acetaminophen ([place] 5-325 Tablet) 1 Each Tablet, 1 EACH PO Q4 Y for SEVERE PAIN LEVEL 7-10, TAB 04/27/16 Multivit/Ca Carb/B Cmplx/Fa* (Jeimy-Brody*) 1 Tab Tab, 1 TAB PO DAILY, TAB 04/27/16 Folic Acid* (Folic Acid*) 1 Mg Tablet, 1 MG PO DAILY, TAB 04/27/16 Calcium Acetate* (Calcium Acetate*) 667 Mg Capsule, 667 MG PO TID, #810 03/28/16 Cinacalcet* (Sensipar*) 60 Mg Tablet, 60 MG PO DAILY, TAB 02/19/16 Pantoprazole* (Pantoprazole*) 40 Mg Tablet.dr, 40 MG PO AC BREAKFAST, TAB 02/19/16 Gabapentin* (Gabapentin*) 300 Mg Capsule, 300 MG PO DAILY, #60 CAP 02/19/16 Allergies Allergies: Coded Allergies: No Known Allergy (Unverified , 04/27/16) PMhx/Soc History of Surgery: Yes (appy) Anesthesia Reaction: No Hx Neurological Disorder: No Hx Respiratory Disorders: Yes Hx Cardiac Disorders: No Hx Psychiatric Problems: No Hx Miscellaneous Medical Probl: Yes (renal failure, on dialysis m-w-f. dm) Hx Alcohol Use: No Hx Substance Use: No Hx Tobacco Use: No Smoking Status: Former smoker FmHx Family History: coronary disease, diabetes Physical Exam Vitals Vital Signs Date Time Temp Pulse Resp B/P Pulse Ox O2 Delivery O2 Flow Rate FiO2 05/28/16 08:00 Nasal Cannula 2 05/28/16 06:24 98.8 76 20 201/89 100 Physical Exam Const: [] Well-developed well-nourished male sitting in a chair in no acute distress Head: Atraumatic normocephalic Eyes: Normal Conjunctiva ENT: Normal External Ears, Nose and Mouth. Neck: Full range of motion..~ No meningismus. Resp: Clear to auscultation bilaterally, no crackles Cardio: Regular rate and rhythm, no murmurs Abd: Soft, mild tenderness to the left lower quadrant with no rebound or guarding, non distended. Normal bowel sounds Skin: No petechiae or rashes Back: No midline or flank tenderness Ext: No cyanosis, or edema Neur: Awake and alert oriented 3 with a GCS of 15, diffusely weak Psych: Normal Mood and Affect Result Diagram: 05/28/16 0800 05/28/16 0800 Results 24 hrs Laboratory Tests Test 05/28/16 08:00 Activated Partial Thromboplast Time 28.6Sec Alanine Aminotransferase (ALT/SGPT) 19IU/L Albumin 4.7g/dl Albumin/Globulin Ratio 1.34 Alkaline Phosphatase 168IU/L Anion Gap 28 Aspartate Amino Transf (AST/SGOT) 19IU/L Basophils # 0.010^3/ul Basophils % 0.3% Blood Morphology Comment Blood Urea Nitrogen 61mg/dl Calcium Level 7.9mg/dl Carbon Dioxide Level 29mmol/L Chloride Level 89mmol/L Creatinine 9.49mg/dl Direct Bilirubin 0.00mg/dl Eosinophils # 0.110^3/ul Eosinophils % 1.5% Globulin 3.50g/dl Glucose Level 247mg/dl Hematocrit 36.0% Hemoglobin 11.9g/dl INR International Normalized Ratio 0.98 Indirect Bilirubin 0.1mg/dl Lipase 283U/L Lymphocytes # 1.210^3/ul Lymphocytes % 13.3% Mean Corpuscular Hemoglobin 30.4pg Mean Corpuscular Hemoglobin Concent 33.1g/dl Mean Corpuscular Volume 91.9fl Mean Platelet Volume 8.9fl Monocytes # 0.610^3/ul Monocytes % 6.1% Neutrophils # 7.110^3/ul Neutrophils % 78.8% Nucleated Red Blood Cells # 0.010^3/ul Nucleated Red Blood Cells % 0.0/100WBC Platelet Count 20949^3/UL Potassium Level 7.2mmol/L Prothrombin Time 13.0Sec Prothrombin Time Ratio 1.0 Red Blood Count 3.9210^6/ul Red Cell Distribution Width 16.8% Sodium Level 139mmol/L Total Bilirubin 0.1mg/dl Total Protein 8.2g/dl Troponin I 0.016ng/ml White Blood Count 9.110^3/ul Current Medications Medications (Trade) Dose Ordered Sig/K[place] Route PRN Reason Start Time Stop Time Status Last Admin Dose Admin Sodium Chloride (NS) 500 ml @ 500 mls/hr Q1H STAT IV 05/28/16 07:43 05/28/16 08:42 DC 05/28/16 08:08 Morphine Sulfate (morphine) 4 mg ONCE STAT IV 05/28/16 07:43 05/28/16 07:46 DC 05/28/16 08:08 Ondansetron HCl 4 mg 4 mg ONCE STAT IV 05/28/16 07:43 05/28/16 07:46 DC 05/28/16 08:07 Sodium Bicarbonate 50 meq/Dextrose 1,050 ml @ 0 mls/hr Q0M ONCE IV 05/28/16 09:00 05/28/16 09:15 DC Sodium Bicarbonate/ Dextrose (Na Bicarb/D5W) 1,050 ml @ 0 mls/hr Q0M IV 05/29/16 09:00 05/29/16 09:00 DC Calcium Chloride (Ca Chloride 10% Syg) 1,000 mg ONCE ONCE IV 05/28/16 09:00 05/28/16 09:08 DC Dextrose (D50w Syringe) 50 ml ONCE ONCE IV 05/28/16 09:00 05/28/16 09:08 DC Insulin Human Regular (Humulin R) 10 unit ONCE ONCE IV 05/28/16 09:00 05/28/16 09:08 DC Sodium Polystyrene Sulfonate (Kayexalate) 60 gm ONCE ONCE PO 05/28/16 09:30 05/28/16 09:31 Sodium Bicarbonate (Na Bicarbonate 4.2% Syr) 50 meq ONCE ONCE IV* 05/28/16 09:30 05/28/16 09:31 Procedures/MDM Differential includes diverticulitis, gastroenteritis, hyperkalemia, hypokalemia , electrolyte disturbance, dehydration, sepsis EKG: Normal sinus rhythm at 70 bpm with no acute ischemic changes noted, peaked T waves noted in lead V2 and V3 with T-wave inversion noted in lead III, QT prolongation noted mild no old EKG available for comparison Chest x-ray shows cardiomegaly without vascular congestion 0900: Patient states he feels a little better. Medications have been ordered to treat the patient's hyperkalemia to bridge him to dialysis. 0920: I spoke with Dr. Alvarado who is in agreement that the patient needs dialysis and he will make those arrangements. I spoke with who will hospitalize the patient. I informed the patient that he will be hospitalized and he has no questions at this time. Critical care time to include 40 minutes. No procedures are included in this critical care time Departure Diagnosis: Primary Impression: Acute weakness Additional Impressions: Hyperkalemia Renal failure, chronic Qualified Code: N18.4 - Renal failure, chronic, stage 4 (severe) Hypertension Qualified Code: I10 - Essential hypertension Diabetes Qualified Code: E11.29 - Type 2 diabetes mellitus with other kidney complication, unspecified longterm insulin use status Abdominal pain Qualified Code: R10.32 - Left lower quadrant pain Vomiting Qualified Code: R11.2 - Non-intractable vomiting with nausea, unspecified vomiting type Diarrhea Qualified Code: R19.7 - Diarrhea, unspecified type Condition: [place] Bill May 28, 2016 09:17
[2016-05-28] MEDS ORDERED: NA BICARBONATE 4.2% INFANT SYG IV* ONE (09:30)
[2016-05-28] MEDS ORDERED: NA BICARBONATE 8.4% 50 ML SYG IV ONE (09:30)
[2016-05-28] MEDS ORDERED: NA POLYST SULFON 15 GM/60 ML BTL PO ONE (09:30)
[2016-05-28] MEDS ORDERED: ACETAMINOPHEN 325 MG TAB PO PRN ×2 (10:00→15:30)
[2016-05-28] MEDS ORDERED: ONDANSETRON 4 MG INJ IV PRN ×2 (10:00→15:30)
--- NOTE | 2016-05-28 10:32 | CONS ---
DATE OF ADMISSION: 05/28/2016 DATE OF CONSULTATION: RENAL CONSULTATION REASON FOR CONSULTATION: End-stage renal disease and hyperkalemia. Thank you, Dr. Lawrence, for asking us to participate in the medical management of this patient. HISTORY OF PRESENT ILLNESS: This 50-year-old man is now in the emergency room after he presented wi th 1 day of generalized weakness, nausea, vomiting and diarrhea. The patient has end-stage renal di sease and is on maintenance hemodialysis Wednesday, Wednesday and Wednesday at the [facility] dialysis unit in [facility]. The patient said that he was dialyzed yesterday, which was his routine dialysis treatment d . He then said that he went home and started feeling weak and developed nausea, vomiting and diar erick. The patient apparently was admitted here 1 month ago for similar problems. At that time he w as hyperkalemic, with a potassium of 7.9. He was seen in consultation by my partner, Dr. Josué lema. The patient during that admission was placed on BiPAP because of congestive heart failure. His blood pressure was elevated at 240/120. The patient was given extra dialysis and medication and did improve. The patient apparently has been on dialysis for 3 years. He was initially dialyzed a t the [facility] unit in [place], but then switched to the [facility] unit in [place] and under our ca re. The patient denies any chest pain or shortness of breath. PAST MEDICAL HISTORY: Remarkable for a history of congestive heart failure, end-stage renal disease , episodic hyperkalemia, diabetes mellitus, hypertension. The patient has glaucoma and hyperparathyr oidism. He is an insulin-dependent diabetic. CURRENT MEDICATIONS: Include the followin. Albuterol inhaler 2 puffs q.4h. p.r.n. 2. Carvedilol 25 mg twice a day. 3. Losartan 100 mg a day. 4. Nifedipine extended release 30 mg a day. 5. Gabapentin 300 mg a day. 6. [place] 5/325 q.4h. p.r.n. pain. 7. Calcium acetate 1 tablet t.i.d. with meals. 8. Renvela 2.4 grams p.o. before each meal 3 times a day. 9. Alphagan P eye drops in both eyes twice a day. 10. Latanoprost 1 drop in both eyes twice a day. 11. Travoprost 1 drop in both eyes at bedtime. 12. Pantoprazole 40 mg a day. 13. NovoLog insulin. 14. Lantus insulin. 15. Folic acid 1 mg a day. 16. Multivitamins. 17. Sensipar 60 mg a day. PAST SURGICAL HISTORY: He does have a left forearm AV fistula for hemodialysis. PHYSICAL EXAMINATION: GENERAL: At this time reveals a well-developed man, in no apparent distress. VITAL SIGNS: Temperature 98.8, pulse is 76, respirations 20, blood pressure 201/89, O2 saturation 1 00% on 2 liters nasal cannula. HEENT: Head normocephalic. EYES: Extraocular muscles intact. NOSE AND MOUTH: Normal. NECK: Supple. No neck vein distention. LUNGS: Clear to auscultation. HEART: Regular rhythm. No murmurs, gallops or rubs. ABDOMEN: Soft, nontender. No masses or megaly. EXTREMITIES: No peripheral edema. LABORATORY TESTS DONE TODAY: Hemoglobin 11.9, hematocrit 36, white blood count 9,100. Sodium 139, p otassium 7.2, chloride 89, CO2 29, BUN 61, creatinine 9.49, blood sugar 247, alkaline phosphatase of 168. IMPRESSION: 1. End-stage renal disease with hyperkalemia. The patient said that he was dialyzed yesterday. It is unclear why he would become so hyperkalemic in less than 24 hours. There may be some component of dietary indiscretion or did he have an inadequate dialysis yesterday. 2. Generalized weakness, probably due to the hyperkalemia. 3. Acute gastroenteritis. 4. History of congestive heart failure. PLAN: The patient is going to be given a hyperkalemia cocktail in the emergency room. I will order hemodialysis to be done as soon as possible. I will follow the patient along with you. I would als o recommend resuming his medications. Dictated By: NIGEL CRUZ MD, ND/SCOTT Conf#: [id number] DID#: [id number]
[2016-05-28] MEDS ORDERED: DOCUSATE SODIUM 100 MG CAP PO PRN (15:30)
[2016-05-28] MEDS ORDERED: NACL 0.9% 3 ML SYG IV SCH (15:30)
[2016-05-28] MEDS ORDERED: MAGNESIUM HYDROXIDE 30ML CUP PO PRN (15:30)
[2016-05-28] MEDS ORDERED: BISACODYL 10 MG SUPP PR PRN (15:30)
[2016-05-28] MEDS: CINACALCET 30 MG TAB PO SCH (16:00)
[2016-05-28] MEDS: NIFEdipine (XL) 30 MG TAB PO SCH (16:00)
[2016-05-28] MEDS: GABAPENTIN 300 MG CAP PO SCH (16:00)
[2016-05-28] MEDS: LOSARTAN 50 MG TAB PO SCH (16:00)
[2016-05-28] MEDS: LATANOPROST 0.005% 2.5 ML OPH BOTH EYES SCH ×2 (16:00→23:11)
[2016-05-28] MEDS: PANTOPRAZOLE (EC) 40 MG TAB PO SCH (16:00)
[2016-05-28] MEDS: ALBUTEROL HFA 8 GM INHALER INH SCH ×4 (16:00→23:12)
[2016-05-28] MEDS ORDERED: hydrALAzine 20 MG INJ IV PRN (16:00)
[2016-05-28] MEDS: BRIMONIDINE 0.1% 5 ML OPH BOTH EYES SCH ×2 (16:00→23:11)
[2016-05-28] MEDS: FOLIC ACID 1 MG TAB PO SCH (16:00)
[2016-05-28] MEDS: MULTIVIT/CA CARB/B CMPLX/FA TAB PO SCH (16:00)
[2016-05-28] MEDS: INSULIN GLARGINE [LANtus] 3 ML PEN SC SCH (16:00)
[2016-05-28] MEDS ORDERED: GLUCAGON 1 MG INJ IM PRN (17:00)
[2016-05-28] MEDS ORDERED: DEXTROSE 50% 50 ML SYRINGE IV PRN ×2 (17:00)
[2016-05-28] MEDS ORDERED: GLUCOSE GEL 15 GRAM TUBE PO PRN ×2 (17:00)
[2016-05-28] MEDS ORDERED: GLUCOSE GEL 15 GRAM TUBE BUCCAL PRN (17:00)
[2016-05-28] MEDS: HYDROCODONE/APAP (5/325) TAB PO PRN ×2 (17:10→17:24)
[2016-05-28] MEDS: INSULIN ASPART [NOVOLOG] 3 ML PEN SC SCH (17:12)
[2016-05-28] MEDS: SEVELAMER CARBONATE 2.4 GM PKT PO SCH (17:23)
[2016-05-28] MEDS: CALCIUM ACETATE 667 MG CAP PO SCH (17:24)
[2016-05-28 20:00] VITALS: BP_SYST 160; BP_SYST 163; BP_DIAS 77; RESP 20; Ht 180.3 cm; Wt 109.0 kg
[2016-05-28 20:31] VITALS: PULSE 70
[2016-05-28] MEDS ORDERED: TRAVOPROST 0.004% 2.5 ML OPH BOTH EYES SCH (21:00)
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
[2016-05-28 21:20] LABS: POTASSIUM 5.3 mmol/L (3.5-5.1)
[2016-05-28 21:23] LABS: CREATININE 11.02 mg/dl (0.61-1.24)
[2016-05-28 21:24] LABS: CALCIUM 8.6 mg/dl (8.4-10.2)
[2016-05-28 23:15] VITALS: BP_SYST 174; BP_DIAS 81; BP_DIAS 84; PULSE 72
[2016-05-28 23:30] VITALS: BP 155/82; PULSE 74
[2016-05-28 23:45] VITALS: BP 132/72; PULSE 80
[2016-05-29] VITALS (22 sets, daily range): BP systolic 94–155; BP diastolic 52–79; PULSE 70–85; RESP 17–20
[2016-05-29] MEDS: ALBUTEROL HFA 8 GM INHALER INH SCH ×2 (01:00→06:13)
[2016-05-29] MEDS: PANTOPRAZOLE (EC) 40 MG TAB PO SCH (06:41)
[2016-05-29 08:01] LABS: BASOPHILS % 0.6 % (0.0-2.0); EOSINOPHILS # 0.3 10^3/ul (0.0-0.5); EOSINOPHILS % 4.2 % (0.0-7.0); HEMATOCRIT 33.3 % (42.0-52.0); HEMOGLOBIN 11.4 g/dl (14.0-18.0); LYMPHOCYTES # 1.8 10^3/ul (0.8-2.9); LYMPHOCYTES % 28.6 % (15.0-51.0); MEAN CORPUSCULAR HEMOGLOBIN 31.5 pg (29.0-33.0); MEAN CORPUSCULAR HGB CONC 34.1 g/dl (32.0-37.0); MEAN CORPUSCULAR VOLUME 92.3 fl (82.0-101.0); MEAN PLATELET VOLUME 8.5 fl (7.4-10.4); MONOCYTE # 0.5 10^3/ul (0.3-0.9); MONOCYTES % 7.6 % (0.0-11.0); NEUTROPHIL # 3.6 10^3/ul (1.6-7.5); PLATELET COUNT 199 10^3/UL (140-440); UNCORRECTED WBC 6.1 10^3/ul (4.8-10.8); WHITE BLOOD COUNT 6.1 10^3/ul (4.8-10.8)
[2016-05-29] MEDS: CALCIUM ACETATE 667 MG CAP PO SCH ×3 (08:07→17:25)
[2016-05-29] MEDS: SEVELAMER CARBONATE 2.4 GM PKT PO SCH ×3 (08:07→17:25)
[2016-05-29] MEDS: INSULIN ASPART [NOVOLOG] 3 ML PEN SC SCH ×3 (08:08→17:35)
[2016-05-29 08:09] LABS: ALBUMIN 4.4 g/dl (3.3-4.9)
[2016-05-29 08:10] LABS: POTASSIUM 5.4 mmol/L (3.5-5.1)
[2016-05-29 08:12] LABS: ALBUMIN/GLOBULIN RATIO 1.29; BILIRUBIN,INDIRECT 0.1 mg/dl (0-1.1); BILIRUBIN,TOTAL 0.1 mg/dl (0.2-1.3); CREATININE 8.58 mg/dl (0.61-1.24); TOTAL PROTEIN 7.8 g/dl (6.1-8.1)
[2016-05-29 08:13] LABS: CALCIUM 8.3 mg/dl (8.4-10.2); MAGNESIUM 2.1 mg/dl (1.7-2.5); PHOSPHORUS 4.9 mg/dl (2.5-4.9)
[2016-05-29 08:39] LABS: CONDITION 1; LH ANALYZER COMMENTS 1
[2016-05-29] MEDS: BRIMONIDINE 0.1% 5 ML OPH BOTH EYES SCH (08:41)
[2016-05-29] MEDS: GABAPENTIN 300 MG CAP PO SCH (08:42)
[2016-05-29] MEDS: CINACALCET 30 MG TAB PO SCH (08:43)
[2016-05-29] MEDS: MULTIVIT/CA CARB/B CMPLX/FA TAB PO SCH (08:43)
[2016-05-29] MEDS: FOLIC ACID 1 MG TAB PO SCH (08:43)
[2016-05-29] MEDS: NIFEdipine (XL) 30 MG TAB PO SCH (08:44)
[2016-05-29] MEDS: INSULIN GLARGINE [LANtus] 3 ML PEN SC SCH (08:46)
[2016-05-29] MEDS: LOSARTAN 50 MG TAB PO SCH (08:56)
[2016-05-29] MEDS ORDERED: SODIUM BICARBONATE (IV ADD) 50 MEQ in DEXTROSE 5% 1,000 ML IV SCH (09:00)
--- NOTE | 2016-05-29 09:28 | CONS ---
Date/Time of Note Date/Time of Note DATE: 05/29/16 TIME: 09:22 Assessment/Plan Assessment/Plan Chief Complaint/Hosp Course 1.ESRD , I am going to order dialysis for today .He usually dialyzes M W F 2.hyperkalemia is improved after hemodialysis yesterday 3.poor dietary compliance , dietary consult Problems: Consultation Date/Type/Reason Admit Date/Time May 28, 2016 at 09:33 Initial Consult Date 24 HR Interval Summary Free Text/Dictation He is feeling better today . He still has some diarrhea from Kayexalate . Constitutional: improved, no complaints Exam/Review of Systems Vital Signs Vitals Vital Signs Date Time Temp Pulse Resp B/P Pulse Ox O2 Delivery O2 Flow Rate FiO2 05/29/16 08:23 71 05/29/16 07:56 97.8 18 134/62 96 05/29/16 00:00 Room Air 05/28/16 13:00 2.0 Intake and Output 05/28/16 05/28/16 05/29/16 15:00 23:00 07:00 Intake Total 1000 ml Output Total 3800 ml Balance -2800 ml Exam Constitutional: alert, oriented, well developed Psych: nl mood/affect, no complaints Respiratory: clear to auscultation, normal air movement Cardiovascular: nl pulses, regular rate and rhythm Musculoskeletal: nl extremities to inspection Results Result Diagram: 05/29/16 0710 05/29/16 0710 Results 24 hrs Laboratory Tests Test 05/28/16 09:42 05/28/16 17:28 05/28/16 20:55 05/29/16 07:10 Bedside Glucose 219 129 Anion Gap 25 H 25 H Blood Urea Nitrogen 71 H 48 #H Calcium Level 8.6 8.3 L Carbon Dioxide Level 35 H 29 Chloride Level 89 L 90 L Creatinine 11.02 H 8.58 #H Glucose Level 191 272 H Potassium Level 5.3 H 5.4 H Sodium Level 144 139 Alanine Aminotransferase (ALT/SGPT) 12 L Albumin 4.4 Albumin/Globulin Ratio 1.29 Alkaline Phosphatase 150 H Aspartate Amino Transf (AST/SGOT) 22 Basophils # 0.0 Basophils % 0.6 Blood Morphology Comment Direct Bilirubin 0.00 Eosinophils # 0.3 Eosinophils % 4.2 Globulin 3.40 H Hematocrit 33.3 L Hemoglobin 11.4 L Indirect Bilirubin 0.1 Lymphocytes # 1.8 Lymphocytes % 28.6 Magnesium Level 2.1 Mean Corpuscular Hemoglobin 31.5 Mean Corpuscular Hemoglobin Concent 34.1 Mean Corpuscular Volume 92.3 Mean Platelet Volume 8.5 Monocytes # 0.5 Monocytes % 7.6 Neutrophils # 3.6 Neutrophils % 59.0 Nucleated Red Blood Cells # 0.0 Nucleated Red Blood Cells % 0.0 Phosphorus Level 4.9 Platelet Count 199 Red Blood Count 3.60 L Red Cell Distribution Width 17.0 H Total Bilirubin 0.1 L Total Protein 7.8 White Blood Count 6.1 # Test 05/29/16 07:45 Bedside Glucose 261 H Medications Medications Current Medications Ondansetron HCl (Zofran Inj) 4 mg Q6H PRN IV NAUSEA AND/OR VOMITING; Start 05/28 at 15:30 Acetaminophen (Tylenol Tab) 650 mg Q6H PRN PO PAIN LEVEL 1-3 OR FEVER; Start at 15:30 Docusate Sodium (Colace) 100 mg Q12H PRN PO CONSTIPATION; Start 05/28/16 at 15: 30 Magnesium Hydroxide (Milk Of Mag) 30 ml DAILY PRN PO CONSTIPATION; Start at 15:30 Bisacodyl (Dulcolax Supp) 10 mg DAILY PRN OR CONSTIPATION; Start 05/28/16 at 15: 30 Brimonidine Tartrate (Alphagan P 0.1%) 1 drop BID BOTH EYES Last administered on 05/29/16 08:41; Admin Dose 1 DROP; Start 05/28/16 at 16:00 Carvedilol (Coreg) 25 mg BID PO Last administered on 05/29/16 08:44; Admin Dose 25 MG; Start 05/28/16 at 16:00 Cinacalcet (Sensipar) 60 mg DAILY PO Last administered on 05/29/16 08:43; Admin Dose 60 MG; Start 05/28/16 at 16:00 Folic Acid (Folic Acid) 1 mg DAILY PO Last administered on 05/29/16 08:43; Admin Dose 1 MG; Start 05/28/16 at 16:00 Gabapentin (Neurontin) 300 mg DAILY PO Last administered on 05/29/16 08:42; Admin Dose 300 MG; Start 05/28/16 at 16:00 Acetaminophen/ Hydrocodone Bitart ([place] (5/325)) 1 tab Q4 PRN PO SEVERE PAIN LEVEL 7-10 Last administered on 05/28/16 17:24; Admin Dose 1 TAB; Start 05/28/16 at 15:30 Insulin Glargine (Lantus) 30 unit DAILY SC Last administered on 05/29/16 08:46 ; Admin Dose 30 UNIT; Start 05/28/16 at 16:00 Latanoprost (Xalatan) 1 drop BID BOTH EYES Last administered on 05/28/16 23:11 ; Admin Dose 1 DROP; Start 05/28/16 at 16:00 Losartan Potassium (Cozaar) 100 mg DAILY PO Last administered on 05/29/16 08:56 ; Admin Dose 100 MG; Start 05/28/16 at 16:00 Multivit/Ca Carb/ B Cmplx/FA/Prenat (Jeimy-Brody) 1 tab DAILY PO Last administered on 05/29/16 08:43; Admin Dose 1 TAB; Start 05/28/16 at 16:00 Nifedipine (Procardia Xl) 30 mg DAILY PO Last administered on 05/29/16 08:44; Admin Dose 30 MG; Start 05/28/16 at 16:00 Hydralazine HCl (Apresoline) 10 mg Q6H PRN IV ELEVATED BLOOD PRESSURE; Start at 16:00 Miscellaneous Information 1 ea NOTE XX ; Start 05/28/16 at 17:00 Glucose (Glutose) 15 gm Q15M PRN PO DECREASED GLUCOSE; Start 05/28/16 at 17:00 Glucose (Glutose) 22.5 gm Q15M PRN PO DECREASED GLUCOSE; Start 05/28/16 at 17:00 Dextrose (D50w Syringe) 25 ml Q15M PRN IV DECREASED GLUCOSE; Start 05/28/16 at 17:00 Dextrose (D50w Syringe) 50 ml Q15M PRN IV DECREASED GLUCOSE; Start 05/28/16 at 17:00 Glucagon (Glucagen) 1 mg Q15M PRN IM DECREASED GLUCOSE; Start 05/28/16 at 17:00 Glucose (Glutose) 15 gm Q15M PRN BUCCAL DECREASED GLUCOSE; Start 05/28/16 at 17: 00 NIGEL CRUZ MD May 29, 2016 09:28
--- NOTE | 2016-05-29 09:32 | PN ---
Date/Time of Note Date/Time of Note DATE: 05/29/16 TIME: 09:19 Assessment/Plan VTE Prophylaxis VTE Prophylaxis Intervention: SCD's Lines/Catheters IV Catheter Type (from [facility]): Saline Lock Urinary Cath still in place: No Assessment/Plan Assessment/Plan 50-year-old male with: 1. Hyperkalemia, likely secondary to dietary indiscretion. Patient with ESRD, HD last night emergently for high K, HD today then d/c home and resume outaptient schedule Appreciate assistance from Dr Luna. 2. Hypertensive urgency. BP controlled on home neds now. 3. Diabetes mellitus. Continue outpatient meds Continue Renal, carbohydrate-controlled diet. 4. Congestive heart failure with known diastolic and systolic dysfunction. Actually, ejection fraction is 40%. Remains euvolemic and stable. Continue outpatient medications. Prophylaxis. The patient already on Protonix for GI prophylaxis, and SCDs have been ordered for DVT prophylaxis. DISPOSITION: D/c home after HD today and follow up with outpatient HD on Wednesday and patient will follow up with Dr Luna as PCP per his choice. Subjective 24 Hr Interval Summary Free Text/Dictation Patient doing better Ambulating BP better and K down to 5.4 this AM HD today and plan for d/c home today after HD done Exam/Review of Systems Vital Signs Vitals Vital Signs Date Time Temp Pulse Resp B/P Pulse Ox O2 Delivery O2 Flow Rate FiO2 05/29/16 08:23 71 05/29/16 07:56 97.8 18 134/62 96 05/29/16 00:00 Room Air 05/28/16 13:00 2.0 Intake and Output 05/28/16 05/28/16 05/29/16 15:00 23:00 07:00 Intake Total 1000 ml Output Total 3800 ml Balance -2800 ml Exam Constitutional: alert, oriented, well developed Respiratory: clear to auscultation, normal air movement Cardiovascular: nl pulses, regular rate and rhythm Gastrointestinal: non-tender, soft Musculoskeletal: nl extremities to inspection Extremities: normal pulses, other (no edema, clubbing or cyanosis ) Neurological: FORMULATION SCIENTIST II-XII intact, nl mental status, nl speech, nl strength Results Result Diagram: 05/29/16 0710 05/29/16 0710 Results 24 hrs Laboratory Tests Test 05/28/16 09:42 05/28/16 17:28 05/28/16 20:55 05/29/16 07:10 Bedside Glucose 219 129 Anion Gap 25 H 25 H Blood Urea Nitrogen 71 H 48 #H Calcium Level 8.6 8.3 L Carbon Dioxide Level 35 H 29 Chloride Level 89 L 90 L Creatinine 11.02 H 8.58 #H Glucose Level 191 272 H Potassium Level 5.3 H 5.4 H Sodium Level 144 139 Alanine Aminotransferase (ALT/SGPT) 12 L Albumin 4.4 Albumin/Globulin Ratio 1.29 Alkaline Phosphatase 150 H Aspartate Amino Transf (AST/SGOT) 22 Basophils # 0.0 Basophils % 0.6 Blood Morphology Comment Direct Bilirubin 0.00 Eosinophils # 0.3 Eosinophils % 4.2 Globulin 3.40 H Hematocrit 33.3 L Hemoglobin 11.4 L Indirect Bilirubin 0.1 Lymphocytes # 1.8 Lymphocytes % 28.6 Magnesium Level 2.1 Mean Corpuscular Hemoglobin 31.5 Mean Corpuscular Hemoglobin Concent 34.1 Mean Corpuscular Volume 92.3 Mean Platelet Volume 8.5 Monocytes # 0.5 Monocytes % 7.6 Neutrophils # 3.6 Neutrophils % 59.0 Nucleated Red Blood Cells # 0.0 Nucleated Red Blood Cells % 0.0 Phosphorus Level 4.9 Platelet Count 199 Red Blood Count 3.60 L Red Cell Distribution Width 17.0 H Total Bilirubin 0.1 L Total Protein 7.8 White Blood Count 6.1 # Test 05/29/16 07:45 Bedside Glucose 261 H Medications Medications Current Medications Ondansetron HCl (Zofran Inj) 4 mg Q6H PRN IV NAUSEA AND/OR VOMITING; Start 05/28 at 15:30 Acetaminophen (Tylenol Tab) 650 mg Q6H PRN PO PAIN LEVEL 1-3 OR FEVER; Start at 15:30 Docusate Sodium (Colace) 100 mg Q12H PRN PO CONSTIPATION; Start 05/28/16 at 15: 30 Magnesium Hydroxide (Milk Of Mag) 30 ml DAILY PRN PO CONSTIPATION; Start at 15:30 Bisacodyl (Dulcolax Supp) 10 mg DAILY PRN CO CONSTIPATION; Start 05/28/16 at 15: 30 Brimonidine Tartrate (Alphagan P 0.1%) 1 drop BID BOTH EYES Last administered on 05/29/16t 08:41; Admin Dose 1 DROP; Start 2/2/17 at 16:00 Carvedilol (Coreg) 25 mg BID PO Last administered on 05/29/16 08:44; Admin Dose 25 MG; Start 05/28/16 at 16:00 Cinacalcet (Sensipar) 60 mg DAILY PO Last administered on 05/29/16 08:43; Admin Dose 60 MG; Start 05/28/16 at 16:00 Folic Acid (Folic Acid) 1 mg DAILY PO Last administered on 05/29/16 08:43; Admin Dose 1 MG; Start 05/28/16 at 16:00 Gabapentin (Neurontin) 300 mg DAILY PO Last administered on 05/29/16 08:42; Admin Dose 300 MG; Start 05/28/16 at 16:00 Acetaminophen/ Hydrocodone Bitart ([place]aughters (5/325)) 1 tab Q4 PRN PO SEVERE PAIN LEVEL 7-10 Last administered on 05/28/16 17:24; Admin Dose 1 TAB; Start 05/28/16 at 15:30 Insulin Glargine (Lantus) 30 unit DAILY SC Last administered on 05/29/16 08:46 ; Admin Dose 30 UNIT; Start 05/28/16 at 16:00 Latanoprost (Xalatan) 1 drop BID BOTH EYES Last administered on 05/28/16 23:11 ; Admin Dose 1 DROP; Start 05/28/16 at 16:00 Losartan Potassium (Cozaar) 100 mg DAILY PO Last administered on 05/29/16 08:56 ; Admin Dose 100 MG; Start 05/28/16 at 16:00 Multivit/Ca Carb/ B Cmplx/FA/Prenat (Jeimy-Brody) 1 tab DAILY PO Last administered on 05/29/16 08:43; Admin Dose 1 TAB; Start 05/28/16 at 16:00 Nifedipine (Procardia Xl) 30 mg DAILY PO Last administered on 05/29/16 08:44; Admin Dose 30 MG; Start 05/28/16 at 16:00 Hydralazine HCl (Apresoline) 10 mg Q6H PRN IV ELEVATED BLOOD PRESSURE; Start at 16:00 Miscellaneous Information 1 ea NOTE XX ; Start 05/28/16 at 17:00 Glucose (Glutose) 15 gm Q15M PRN PO DECREASED GLUCOSE; Start 05/28/16 at 17:00 Glucose (Glutose) 22.5 gm Q15M PRN PO DECREASED GLUCOSE; Start 05/28/16 at 17:00 Dextrose (D50w Syringe) 25 ml Q15M PRN IV DECREASED GLUCOSE; Start 05/28/16 at 17:00 Dextrose (D50w Syringe) 50 ml Q15M PRN IV DECREASED GLUCOSE; Start 05/28/16 at 17:00 Glucagon (Glucagen) 1 mg Q15M PRN IM DECREASED GLUCOSE; Start 05/28/16 at 17:00 Glucose (Glutose) 15 gm Q15M PRN BUCCAL DECREASED GLUCOSE; Start 05/28/16 at 17: 00 ROGELIO NANCE May 29, 2016 09:29
--- NOTE | 2016-05-29 09:35 | PDOCDIS ---
Discharge Instructions CONDITION Patient Condition: Good HOME CARE INSTRUCTIONS: Special Diet: renal, ADA diet ACTIVITY: Activity Restrictions: No Restrictions FOLLOW UP/APPOINTMENTS Appointments Follow up with PCP within 1 to 2 weeks Resume outpatient HD schedule of Tim/Loulou/ROGELIO FORTUNE May 29, 2016 09:35
[2016-05-29] MEDS: LATANOPROST 0.005% 2.5 ML OPH BOTH EYES SCH (12:10)
[2016-05-29] MEDS: HYDROCODONE/APAP (5/325) TAB PO PRN (17:44)
== END 2016-05-29 20:24 | disposition home or self-care (01) ==
LOC: E/R 06:21 → UNDOADMOB 09:33 → MS4 09:33
PROVIDERS: ADMIT Internal Medicine; ATTEND Internal Medicine
DX: E87.5 Hyperkalemia (principal); I12.0 Hypertensive chronic kidney disease with stage 5 chronic kidney disease or end stage renal disease; N18.6 End stage renal disease; Z99.2 Dependence on renal dialysis; E11.9 Type 2 diabetes mellitus without complications; I50.40 Unspecified combined systolic (congestive) and diastolic (congestive) heart failure
CPT/HCPCS: 36415; 71010; 74176; 80048; 80053; 82962; 83690; 83735; 84100; 84484; 85025; 85610; 85730; 87081; 90935; 93005; 96372; 96374; 96375; 99291; G0378; J1815; J2270; J2405; J7040; J7070

== ENCOUNTER 2016-08-16 17:50 | Emergency (ER) | payer MEDICAID, MEDICARE ==
[~2016-08-16] VITALS: Ht 208.3 cm; Wt 113.0 kg
[2016-08-16 17:56] VITALS: Ht 208.3 cm; Wt 113.0 kg
== END 2016-08-16 18:05 | disposition left against medical advice (07) ==
LOC: E/R 17:50
DX: Z53.21 Procedure and treatment not carried out due to patient leaving prior to being seen by health care provider (principal)

== ENCOUNTER 2016-09-18 04:44 | Inpatient (IN) | payer MEDICARE, MEDICAID ==
[~2016-09-18] VITALS: Ht 177.8 cm; Wt 112.6 kg
[2016-09-18] VITALS (16 sets, daily range): BP systolic 104–182; BP diastolic 55–87; PULSE 77–99; RESP 18–20; TEMP 97.9; Ht 177.8 cm; Wt 112.6 kg
[2016-09-18] MEDS ORDERED: hydrALAzine 20 MG INJ IV ONE (05:00)
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
[2016-09-18 05:21] LABS: ADD SCAN DIFF NO
[2016-09-18 05:25] LABS: BASOPHILS % 0.5 % (0.0-2.0); EOSINOPHILS # 0.2 10^3/ul (0.0-0.5); EOSINOPHILS % 3.2 % (0.0-7.0); HEMATOCRIT 29.1 % (42.0-52.0); HEMOGLOBIN 9.8 g/dl (14.0-18.0); LYMPHOCYTES # 2.3 10^3/ul (0.8-2.9); LYMPHOCYTES % 38.1 % (15.0-51.0); MEAN CORPUSCULAR HGB CONC 33.7 g/dl (32.0-37.0); MONOCYTE # 0.2 10^3/ul (0.3-0.9); MONOCYTES % 3.8 % (0.0-11.0); NEUTROPHIL # 3.2 10^3/ul (1.6-7.5); NEUTROPHILS % 54.1 % (39.0-77.0); PLATELET COUNT 192 10^3/UL (140-415); RED BLOOD COUNT 2.97 10^6/ul (4.70-6.10); RED CELL DISTRIBUTION WIDTH 15.2 % (11.5-14.5)
[2016-09-18 05:36] LABS: ALBUMIN 4.5 g/dl (3.3-4.9)
[2016-09-18 05:37] LABS: CHLORIDE 89 mmol/L (97-110); SODIUM 135 mmol/L (135-144)
[2016-09-18 05:39] LABS: ANION GAP 26 (8-16); ASPARTATE AMINO TRANSFERASE 15 IU/L (15-46); BILIRUBIN,INDIRECT 0.1 mg/dl (0-1.1); BILIRUBIN,TOTAL 0.1 mg/dl (0.2-1.3); CARBON DIOXIDE 27 mmol/L (21-31); CREATININE 12.67 mg/dl (0.61-1.24)
[2016-09-18 05:40] LABS: ALANINE AMINOTRANSFERASE 28 IU/L (13-69); ALKALINE PHOSPHATASE 142 IU/L (42-121); BLOOD UREA NITROGEN 80 mg/dl (7-20); CALCIUM 7.8 mg/dl (8.4-10.2); GLUCOSE 268 mg/dl (70-220); TOTAL PROTEIN 7.5 g/dl (6.1-8.1)
[2016-09-18 05:55] LABS: TROPONIN-I < 0.012 ng/ml (0.00-0.12)
[2016-09-18 05:56] LABS: POTASSIUM 6.9 mmol/L (3.5-5.1)
[2016-09-18] MEDS ORDERED: ALBUTEROL 0.083% (NEB) 2.5 MG/3 ML AMP HHN STA (05:57)
[2016-09-18] MEDS ORDERED: CALCIUM GLUCONATE 10% 1 GM in SOD CHLORIDE 0.9% 100 ML IVPB ONE (06:00)
--- NOTE | 2016-09-18 06:14 | RADRPT ---
PROCEDURE: Chest. CLINICAL INDICATION: Chest pain. TECHNIQUE: Single frontal view of the chest was obtained. COMPARISON: 05/28/2016. FINDINGS: The cardiac silhouette is magnified. The aortic arch is unremarkable. There is no focal consolidat ion, vascular congestion or pleural effusion. There is no pneumothorax. IMPRESSION: No evidence for active cardiopulmonary disease. .Ryan Akbar MD, Date Time Electronically viewed and signed by .Ryan Akbar MD, on 09/18/2016 06:14 .T/
[2016-09-18] MEDS ORDERED: NACL 0.9% 3 ML SYG IV SCH (09:00)
[2016-09-18] MEDS ORDERED: ACETAMINOPHEN 325 MG TAB PO PRN (09:00)
[2016-09-18] MEDS ORDERED: ONDANSETRON 4 MG INJ IV PRN (09:00)
--- NOTE | 2016-09-18 09:58 | PREOPHP ---
DATE OF ADMISSION: 09/18/2016 REASON FOR ADMISSION: Diarrhea for 4 days, with generalized weakness. HISTORY OF PRESENT ILLNESS: This 50-year-old man who has end-stage renal disease was admitted throu gh the emergency room after he presented today with complaints of 4 days of diarrhea and generalized weakness. The patient is on maintenance hemodialysis Wednesday, Wednesday, Wednesday. He was last dialy zed 2 days ago, which was Wednesday. He is due for dialysis today. The patient has seen me several times as an outpatient in my office. The patient has a history of chronic back pain and takes Norc o. The patient says that he has had some nausea with some vomiting. The patient feels that he is f luid overloaded though and says that he needs at least 4 liters of fluid removed. The patient has a left forearm AV fistula which is used for his hemodialysis. The patient says that he has had some slight intermittent chest pain. He denies shortness of breath. The patient in the emergency room h ad an elevated blood pressure and a potassium of 6.9. PAST MEDICAL HISTORY: Remarkable for end-stage renal disease, hypertension, type 2 diabetes mellitu s, glaucoma, chronic back pain. SOCIAL HISTORY: The patient does not smoke cigarettes nor drink alcohol. ALLERGIES: HE HAS NO KNOWN DRUG ALLERGIES. PHYSICAL EXAMINATION: GENERAL: At this time reveals a well-developed man, in no apparent distress. He is currently havin g a hemodialysis treatment done. VITAL SIGNS: Temperature 97.7, pulse of 93, respirations 18, blood pressure 182/86, now down to 170 systolic while being dialyzed. O2 saturation is 100% on room air. HEENT: Head normocephalic. Eyes: Extraocular muscles intact. NOSE AND MOUTH: Normal. NECK: Supple. No neck vein distention. There was no lymph node adenopathy or thyromegaly. LUNGS: Clear to auscultation. HEART: Regular rhythm. No murmurs, gallops or rubs. ABDOMEN: Soft, but he does have some slight tenderness over the epigastric and left upper quadrant. No rebound. Bowel sounds active. EXTREMITIES: There is trace pretibial edema in the bilateral lower extremities. NEUROLOGIC: Grossly intact, without focal neurologic deficits. IMPRESSION: 1. Diarrhea, probably due to acute gastroenteritis. 2. End-stage renal disease, on maintenance hemodialysis. 3. Hyperkalemia due to #2. 4. Elevated lipase, consistent with acute pancreatitis. 5. Hypertension. 6. Type 2 diabetes mellitus. 7. Anemia of end-stage renal disease. PLAN: 1. Emergent hemodialysis is now being done. 2. Abdominal ultrasound to look specifically at the liver and gallbladder. 3. Check labs in the a.m., including amylase and lipase. 4. Consider another dialysis tomorrow if still above dry weight. Dictated By: NIGEL CRUZ MD, ND/SCOTT Conf#: [id number] DID#: [id number]
[2016-09-18] MEDS: LOSARTAN 50 MG TAB PO SCH (10:00)
[2016-09-18] MEDS ORDERED: GLUCOSE GEL 15 GRAM TUBE BUCCAL PRN (10:00)
[2016-09-18] MEDS: NIFEdipine (XL) 30 MG TAB PO SCH (10:00)
[2016-09-18] MEDS: ALBUTEROL 18 GM INHALER INH SCH ×4 (10:00→21:14)
[2016-09-18] MEDS ORDERED: DEXTROSE 50% 50 ML SYRINGE IV PRN ×2 (10:00)
[2016-09-18] MEDS ORDERED: GLUCAGON 1 MG INJ IM PRN (10:00)
[2016-09-18] MEDS ORDERED: GLUCOSE GEL 15 GRAM TUBE PO PRN ×2 (10:00)
[2016-09-18] MEDS: BRIMONIDINE 0.1% 5 ML OPH BOTH EYES SCH ×2 (11:14→21:13)
[2016-09-18] MEDS: HYDROCODONE/APAP (5/325) TAB PO PRN ×2 (11:14→17:55)
[2016-09-18] MEDS: CALCIUM ACETATE 667 MG CAP PO SCH ×2 (11:19→17:45)
[2016-09-18] MEDS: GABAPENTIN 300 MG CAP PO SCH (11:19)
[2016-09-18] MEDS: MULTIVIT/CA CARB/B CMPLX/FA TAB PO SCH (11:19)
[2016-09-18] MEDS: FOLIC ACID 1 MG TAB PO SCH (11:19)
[2016-09-18] MEDS: SEVELAMER CARBONATE 0.8 GM PKT PO SCH ×2 (11:20→17:45)
[2016-09-18] MEDS: PANTOPRAZOLE (EC) 40 MG TAB PO SCH (11:22)
[2016-09-18] MEDS: INSULIN ASPART [NOVOLOG] 3 ML PEN SC SCH ×5 (12:17→23:28)
[2016-09-18] MEDS ORDERED: ALBUTEROL HFA 8 GM INHALER INH SCH (13:00)
[2016-09-18] MEDS ORDERED: LATANOPROST 0.005% 2.5 ML OPH BOTH EYES SCH (21:00)
[2016-09-18] MEDS: LATANOPROST 0.005% 2.5 ML OPH BOTH EYES SCH (21:13)
[2016-09-18] MEDS: INSULIN GLARGINE [LANtus] 3 ML PEN SC SCH (23:28)
[2016-09-19] VITALS (12 sets, daily range): BP systolic 121–187; BP diastolic 58–84; PULSE 67–79; RESP 16–20
[2016-09-19] MEDS: ALBUTEROL 18 GM INHALER INH SCH ×6 (01:00→20:44)
[2016-09-19] MEDS: ACCU-CHEK XX SCH (02:00)
[2016-09-19] MEDS: PANTOPRAZOLE (EC) 40 MG TAB PO SCH ×2 (05:50→18:22)
[2016-09-19 06:57] LABS: ADD SCAN DIFF NO
[2016-09-19 07:05] LABS: BASOPHILS % 0.6 % (0.0-2.0); EOSINOPHILS # 0.2 10^3/ul (0.0-0.5); EOSINOPHILS % 3.1 % (0.0-7.0); HEMATOCRIT 29.6 % (42.0-52.0); HEMOGLOBIN 9.6 g/dl (14.0-18.0); LYMPHOCYTES # 1.9 10^3/ul (0.8-2.9); LYMPHOCYTES % 39.5 % (15.0-51.0); MEAN CORPUSCULAR HEMOGLOBIN 31.8 pg (29.0-33.0); MEAN CORPUSCULAR HGB CONC 32.4 g/dl (32.0-37.0); MEAN PLATELET VOLUME 10.8 fl (7.4-10.4); MONOCYTE # 0.2 10^3/ul (0.3-0.9); MONOCYTES % 4.1 % (0.0-11.0); NEUTROPHIL # 2.6 10^3/ul (1.6-7.5); NEUTROPHILS % 52.7 % (39.0-77.0); PLATELET COUNT 182 10^3/UL (140-415); RED BLOOD COUNT 3.02 10^6/ul (4.70-6.10); RED CELL DISTRIBUTION WIDTH 15.4 % (11.5-14.5); WHITE BLOOD COUNT 4.9 10^3/ul (4.8-10.8)
[2016-09-19 07:38] LABS: ALBUMIN 4.2 g/dl (3.3-4.9)
[2016-09-19 07:39] LABS: POTASSIUM 5.7 mmol/L (3.5-5.1)
[2016-09-19 07:41] LABS: ALBUMIN/GLOBULIN RATIO 1.44; BILIRUBIN,INDIRECT 0.3 mg/dl (0-1.1); BILIRUBIN,TOTAL 0.3 mg/dl (0.2-1.3); CREATININE 10.42 mg/dl (0.61-1.24); TOTAL PROTEIN 7.1 g/dl (6.1-8.1)
[2016-09-19 07:42] LABS: CALCIUM 8.4 mg/dl (8.4-10.2)
[2016-09-19] MEDS: FOLIC ACID 1 MG TAB PO SCH (10:11)
[2016-09-19] MEDS: SEVELAMER CARBONATE 0.8 GM PKT PO SCH ×3 (10:11→18:21)
[2016-09-19] MEDS: MULTIVIT/CA CARB/B CMPLX/FA TAB PO SCH (10:11)
[2016-09-19] MEDS: CALCIUM ACETATE 667 MG CAP PO SCH ×3 (10:11→18:21)
[2016-09-19] MEDS: GABAPENTIN 300 MG CAP PO SCH (10:11)
[2016-09-19] MEDS: NIFEdipine (XL) 30 MG TAB PO SCH (10:12)
[2016-09-19] MEDS: LOSARTAN 50 MG TAB PO SCH (10:13)
[2016-09-19] MEDS: BRIMONIDINE 0.1% 5 ML OPH BOTH EYES SCH ×2 (10:14→20:44)
[2016-09-19] MEDS: INSULIN ASPART [NOVOLOG] 3 ML PEN SC SCH ×7 (10:18→20:51)
[2016-09-19] MEDS: HYDROCODONE/APAP (5/325) TAB PO PRN ×3 (10:29→22:28)
--- NOTE | 2016-09-19 11:06 | RADRPT ---
PROCEDURE: US Abdomen and Retroperitoneum. CLINICAL INDICATION: Elevated liver function tests TECHNIQUE: Multiple real-time longitudinal and transverse images were acquired of the patient's ab domen and retroperitoneum utilizing a curved array transducer. COMPARISON: None FINDINGS: The liver heterogeneous, hyperechoic and enlarged, measuring 19.2 cm, without focal mass or intrahep atic biliary dilatation. Normal hepatopedal flow is seen within the main portal vein. The gallbladder is normal. There is no pericholecystic fluid or gallbladder wall thickening or gallstones. No intra or extrahepatic biliary dilatation is seen. The common bile duct measures mm in maximal dimension. The visualized portions of the pancreas are unremarkable with obscuration of the tail of the pancrea s. The spleen is normal. No free fluid is identified. The right kidney measures 9.2 cm in length. The left kidney measures 9.1 cm in length. There is increased echogenicity within the kidneys. There are no perinephric fluid collections. No hydronephrosis, mass, or calculus is seen. The aorta and IVC are unremarkable. IMPRESSION: 1. Hepatomegaly with heterogeneous hyperechogenicity of the liver, consistent with fatty infiltrati on or hepatocellular disease. 2. Hyperechogenic kidneys, consistent with medical renal disease. RPTAT: QQ .Thiago Thao MD, MD Date Time Electronically viewed and signed by .Thiago Thao MD, on 09/19/2016 11:06 .M/
--- NOTE | 2016-09-19 16:45 | PN ---
Date/Time of Note Date/Time of Note DATE: 09/19/16 TIME: 16:15 Assessment/Plan VTE Prophylaxis VTE Prophylaxis Intervention: ambulation Lines/Catheters Urinary Cath still in place: No Assessment/Plan Chief Complaint/Hosp Course 1. ESRD 2. Hyperkalemia due to #1 . I will order hemodialysis for tomorrow 3. pancreatitis , his amylase and lipase are decreasing , no gall stones and he denies alcohol use . 4. back pain . Problems: Subjective 24 Hr Interval Summary Free Text/Dictation He is overall feeling better , but still has some dizziness and abdominal pain . No vomiting or diarrhea . Cardiovascular: no complaints Gastrointestinal: pain Musculoskeletal: back pain Neurologic: dizziness Exam/Review of Systems Vital Signs Vitals Vital Signs Date Time Temp Pulse Resp B/P Pulse Ox O2 Delivery O2 Flow Rate FiO2 09/19/16 15:13 98.4 72 18 121/58 98 09/18/16 08:20 Room Air 09/18/16 06:15 21 Intake and Output 09/18/16 09/18/16 09/19/16 15:00 23:00 07:00 Intake Total 300 ml 660 ml 800 ml Output Total 4000 ml Balance -3700 ml 660 ml 800 ml Exam Constitutional: alert, obese, oriented Psych: no complaints Respiratory: clear to auscultation, normal air movement Cardiovascular: regular rate and rhythm Gastrointestinal: soft, tender Musculoskeletal: nl extremities to inspection Results Result Diagram: 09/19/16 0610 09/19/16 0610 Results 24 hrs Laboratory Tests Test 09/18/16 17:44 09/18/16 21:17 09/19/16 05:54 09/19/16 06:10 Bedside Glucose 187 202 210 White Blood Count 4.9 Red Blood Count 3.02 L Hemoglobin 9.6 L Hematocrit 29.6 L Mean Corpuscular Volume 98.0 Mean Corpuscular Hemoglobin 31.8 Mean Corpuscular Hemoglobin Concent 32.4 Red Cell Distribution Width 15.4 H Platelet Count 182 Mean Platelet Volume 10.8 H Neutrophils % 52.7 Lymphocytes % 39.5 Monocytes % 4.1 Eosinophils % 3.1 Basophils % 0.6 Nucleated Red Blood Cells % 0.0 Neutrophils # 2.6 Lymphocytes # 1.9 Monocytes # 0.2 L Eosinophils # 0.2 Basophils # 0.0 Nucleated Red Blood Cells # 0.0 Sodium Level 134 L Potassium Level 5.7 H Chloride Level 90 L Carbon Dioxide Level 27 Anion Gap 23 H Blood Urea Nitrogen 61 H Creatinine 10.42 #H Glucose Level 181 Calcium Level 8.4 Total Bilirubin 0.3 Direct Bilirubin 0.00 Indirect Bilirubin 0.3 Aspartate Amino Transf (AST/SGOT) 15 Alanine Aminotransferase (ALT/SGPT) 27 Alkaline Phosphatase 111 Total Protein 7.1 Albumin 4.2 Globulin 2.90 Albumin/Globulin Ratio 1.44 Amylase Level 84 Lipase 358 H Test 09/19/16 12:20 09/19/16 13:32 Bedside Glucose 72 122 Medications Medications Current Medications Ondansetron HCl (Zofran Inj) 4 mg Q6H PRN IV NAUSEA AND/OR VOMITING; Start at 09:00 Acetaminophen (Tylenol Tab) 650 mg Q6H PRN PO PAIN LEVEL 1-3 OR FEVER Last administered on 09/18/16 10:17; Admin Dose 650 MG; Start 09/18/16 at 09:00 Acetaminophen/ Hydrocodone Bitart ([place] (5/325)) 1 tab Q6H PRN PO PAIN LEVEL 4 -6 Last administered on 09/19/16 10:29; Admin Dose 1 TAB; Start 09/18/16 at 09: 00 Brimonidine Tartrate (Alphagan P 0.1%) 1 drop BID BOTH EYES Last administered on 09/19/16 10:14; Admin Dose 1 DROP; Start 09/18/16 at 10:00 Carvedilol (Coreg) 25 mg BID PO Last administered on 09/19/16 10:12; Admin Dose 25 MG; Start 09/18/16 at 10:00 Folic Acid (Folic Acid) 1 mg DAILY PO Last administered on 09/19/16 10:11; Admin Dose 1 MG; Start 09/18/16 at 10:00 Gabapentin (Neurontin) 300 mg DAILY PO Last administered on 09/19/16 10:11; Admin Dose 300 MG; Start 09/18/16 at 10:00 Losartan Potassium (Cozaar) 100 mg DAILY PO Last administered on 09/19/16 10: 13; Admin Dose 100 MG; Start 09/18/16 at 10:00 Multivit/Ca Carb/ B Cmplx/FA/Prenat (Jeimy-Brody) 1 tab DAILY PO Last administered on 09/19/16 10:11; Admin Dose 1 TAB; Start 09/18/16 at 10:00 Nifedipine (Procardia Xl) 30 mg DAILY PO Last administered on 09/19/16 10:12; Admin Dose 30 MG; Start 09/18/16 at 10:00 Latanoprost (Xalatan) 1 drop HS BOTH EYES Last administered on 09/18/16 21:13 ; Admin Dose 1 DROP; Start 09/18/16 at 21:00 Diagnostic Test (Pha) (Accu-Chek) 1 ea 02 XX Last administered on 09/19/16 02: 00; Admin Dose 1 EA; Start 09/19/16 at 02:00 Insulin Glargine (Lantus) 30 unit DAILY@20 SC Last administered on 09/18/16 23 :28; Admin Dose 30 UNIT; Start 09/18/16 at 20:00 Miscellaneous Information 1 ea NOTE XX ; Start 09/18/16 at 10:00 Glucose (Glutose) 15 gm Q15M PRN PO DECREASED GLUCOSE; Start 09/18/16 at 10:00 Glucose (Glutose) 22.5 gm Q15M PRN PO DECREASED GLUCOSE; Start 09/18/16 at 10: 00 Dextrose (D50w Syringe) 25 ml Q15M PRN IV DECREASED GLUCOSE; Start 09/18/16 at 10:00 Dextrose (D50w Syringe) 50 ml Q15M PRN IV DECREASED GLUCOSE; Start 09/18/16 at 10:00 Glucagon (Glucagen) 1 mg Q15M PRN IM DECREASED GLUCOSE; Start 09/18/16 at 10:00 Glucose (Glutose) 15 gm Q15M PRN BUCCAL DECREASED GLUCOSE; Start 09/18/16 at 10 :00 NIGEL CRUZ MD September 19, 2016 16:45
[2016-09-19] MEDS: LATANOPROST 0.005% 2.5 ML OPH BOTH EYES SCH (20:44)
[2016-09-19] MEDS: INSULIN GLARGINE [LANtus] 3 ML PEN SC SCH (20:51)
[2016-09-20] VITALS (19 sets, daily range): BP systolic 95–163; BP diastolic 52–79; PULSE 65–92; RESP 16–20
[2016-09-20] MEDS: ALBUTEROL 18 GM INHALER INH SCH ×6 (01:00→20:48)
[2016-09-20] MEDS: ACCU-CHEK XX SCH (02:00)
[2016-09-20] MEDS: PANTOPRAZOLE (EC) 40 MG TAB PO SCH ×2 (05:14→17:05)
[2016-09-20] MEDS: SEVELAMER CARBONATE 0.8 GM PKT PO SCH ×3 (08:20→17:12)
[2016-09-20] MEDS: CALCIUM ACETATE 667 MG CAP PO SCH ×3 (08:20→17:05)
[2016-09-20] MEDS: BRIMONIDINE 0.1% 5 ML OPH BOTH EYES SCH ×2 (08:21→20:48)
[2016-09-20] MEDS: INSULIN ASPART [NOVOLOG] 3 ML PEN SC SCH ×7 (08:33→20:51)
[2016-09-20] MEDS: GABAPENTIN 300 MG CAP PO SCH (08:34)
[2016-09-20] MEDS: FOLIC ACID 1 MG TAB PO SCH (08:34)
[2016-09-20] MEDS: LOSARTAN 50 MG TAB PO SCH (08:35)
[2016-09-20] MEDS: NIFEdipine (XL) 30 MG TAB PO SCH (08:35)
[2016-09-20] MEDS: MULTIVIT/CA CARB/B CMPLX/FA TAB PO SCH (08:35)
--- NOTE | 2016-09-20 14:24 | CONS ---
Date/Time of Note Date/Time of Note DATE: 09/20/16 TIME: 14:19 Assessment/Plan Assessment/Plan Chief Complaint/Hosp Course 1. ESRD , his regular dialysis days are . 2. Hyperkalemia due to #1 . He had dialysis today and I will order hemodialysis for tomorrow . 3. pancreatitis , his amylase and lipase are decreasing , no gall stones on ultrasound and he denies alcohol use . 4. back pain . I will order X rays of back and start PT . Problems: Consultation Date/Type/Reason Admit Date/Time September 18, 2016 at 05:50 Initial Consult Date 24 HR Interval Summary Free Text/Dictation He just finished hemodialysis treatment . He is still having back pain and dizziness . Constitutional: improved Exam/Review of Systems Vital Signs Vitals Vital Signs Date Time Temp Pulse Resp B/P Pulse Ox O2 Delivery O2 Flow Rate FiO2 09/20/16 13:49 77 09/20/16 11:20 16 09/20/16 11:01 97.3 141/78 99 09/18/16 08:20 Room Air 09/18/16 06:15 21 Intake and Output 09/19/16 09/19/16 09/20/16 15:00 23:00 07:00 Intake Total 960 ml 200 ml Balance 960 ml 200 ml Exam Constitutional: alert, obese, oriented Psych: nl mood/affect, no complaints Head: normocephalic Respiratory: clear to auscultation, normal air movement Cardiovascular: regular rate and rhythm Gastrointestinal: nl liver, spleen, non-tender, soft Musculoskeletal: nl extremities to inspection Results Result Diagram: 09/19/16 0610 09/19/16 0610 Results 24 hrs Laboratory Tests Test 09/19/16 18:07 09/19/16 20:43 09/20/16 04:32 09/20/16 08:19 Bedside Glucose 246 H 254 H 215 194 Test 09/20/16 12:25 Bedside Glucose 137 Medications Medications Current Medications Ondansetron HCl (Zofran Inj) 4 mg Q6H PRN IV NAUSEA AND/OR VOMITING; Start at 09:00 Acetaminophen (Tylenol Tab) 650 mg Q6H PRN PO PAIN LEVEL 1-3 OR FEVER Last administered on 09/18/16t 10:17; Admin Dose 650 MG; Start 09/18/16 at 09:00 Acetaminophen/ Hydrocodone Bitart ([place] (5/325)) 1 tab Q6H PRN PO PAIN LEVEL 4 -6 Last administered on 09/19/16 22:28; Admin Dose 1 TAB; Start 09/18/16 at 09: 00 Brimonidine Tartrate (Alphagan P 0.1%) 1 drop BID BOTH EYES Last administered on 09/20/16 08:21; Admin Dose 1 DROP; Start 09/18/16 at 10:00 Carvedilol (Coreg) 25 mg BID PO Last administered on 09/20/16 08:34; Admin Dose 25 MG; Start 09/18/16 at 10:00 Folic Acid (Folic Acid) 1 mg DAILY PO Last administered on 09/20/16 08:34; Admin Dose 1 MG; Start 09/18/16 at 10:00 Gabapentin (Neurontin) 300 mg DAILY PO Last administered on 09/20/16 08:34; Admin Dose 300 MG; Start 09/18/16 at 10:00 Losartan Potassium (Cozaar) 100 mg DAILY PO Last administered on 09/20/16 08: 35; Admin Dose 100 MG; Start 09/18/16 at 10:00 Multivit/Ca Carb/ B Cmplx/FA/Prenat ([place]Bro[place]) 1 tab DAILY PO Last administered on 09/20/16 08:35; Admin Dose 1 TAB; Start 09/18/16 at 10:00 Nifedipine (Procardia Xl) 30 mg DAILY PO Last administered on 09/20/16 08:35; Admin Dose 30 MG; Start 09/18/16 at 10:00 Latanoprost (Xalatan) 1 drop HS BOTH EYES Last administered on 09/19/16 20:44 ; Admin Dose 1 DROP; Start 09/18/16 at 21:00 Diagnostic Test (Pha) (Accu-Chek) 1 ea 02 XX Last administered on 09/19/16 02: 00; Admin Dose 1 EA; Start 09/19/16 at 02:00 Insulin Glargine (Lantus) 30 unit DAILY@20 SC Last administered on 09/19/16 20 :51; Admin Dose 30 UNIT; Start 09/18/16 at 20:00 Miscellaneous Information 1 ea NOTE XX ; Start 5/26/17 at 10:00 Glucose (Glutose) 15 gm Q15M PRN PO DECREASED GLUCOSE; Start 09/18/16 at 10:00 Glucose (Glutose) 22.5 gm Q15M PRN PO DECREASED GLUCOSE; Start 09/18/16 at 10: 00 Dextrose (D50w Syringe) 25 ml Q15M PRN IV DECREASED GLUCOSE; Start 09/18/16 at 10:00 Dextrose (D50w Syringe) 50 ml Q15M PRN IV DECREASED GLUCOSE; Start 09/18/16 at 10:00 Glucagon (Glucagen) 1 mg Q15M PRN IM DECREASED GLUCOSE; Start 09/18/16 at 10:00 Glucose (Glutose) 15 gm Q15M PRN BUCCAL DECREASED GLUCOSE; Start 09/18/16 at 10 :00 Pantoprazole (Protonix Tab) 40 mg BID@06,18 PO Last administered on 09/20/16t 05:14; Admin Dose 40 MG; Start 09/19/16 at 18:00 NIGEL CRUZ MD September 20, 2016 14:24
[2016-09-20] MEDS: HYDROCODONE/APAP (5/325) TAB PO PRN ×2 (17:05→22:46)
[2016-09-20] MEDS: LATANOPROST 0.005% 2.5 ML OPH BOTH EYES SCH (20:48)
[2016-09-20] MEDS: INSULIN GLARGINE [LANtus] 3 ML PEN SC SCH (20:57)
[2016-09-21] VITALS (14 sets, daily range): BP systolic 122–166; BP diastolic 56–81; PULSE 63–67; RESP 18
[2016-09-21] MEDS: ALBUTEROL 18 GM INHALER INH SCH ×3 (01:00→08:17)
[2016-09-21] MEDS: ACCU-CHEK XX SCH (02:00)
[2016-09-21] MEDS: PANTOPRAZOLE (EC) 40 MG TAB PO SCH (05:03)
[2016-09-21 06:47] LABS: ADD SCAN DIFF NO
[2016-09-21 06:53] LABS: BASOPHILS % 0.6 % (0.0-2.0); EOSINOPHILS # 0.2 10^3/ul (0.0-0.5); HEMATOCRIT 29.6 % (42.0-52.0); LYMPHOCYTES # 2.3 10^3/ul (0.8-2.9); LYMPHOCYTES % 43.1 % (15.0-51.0); MEAN CORPUSCULAR HEMOGLOBIN 32.6 pg (29.0-33.0); MEAN CORPUSCULAR HGB CONC 33.8 g/dl (32.0-37.0); MEAN CORPUSCULAR VOLUME 96.4 fl (82.0-101.0); MONOCYTE # 0.2 10^3/ul (0.3-0.9); MONOCYTES % 3.6 % (0.0-11.0); NEUTROPHIL # 2.6 10^3/ul (1.6-7.5); NEUTROPHILS % 49.5 % (39.0-77.0); PLATELET COUNT 184 10^3/UL (140-415); RED BLOOD COUNT 3.07 10^6/ul (4.70-6.10); RED CELL DISTRIBUTION WIDTH 15.1 % (11.5-14.5); WHITE BLOOD COUNT 5.3 10^3/ul (4.8-10.8)
[2016-09-21 07:16] LABS: ALBUMIN 4.1 g/dl (3.3-4.9)
[2016-09-21 07:17] LABS: POTASSIUM 5.4 mmol/L (3.5-5.1)
[2016-09-21 07:19] LABS: ALBUMIN/GLOBULIN RATIO 1.36; BILIRUBIN,INDIRECT 0.1 mg/dl (0-1.1); BILIRUBIN,TOTAL 0.1 mg/dl (0.2-1.3); CREATININE 11.03 mg/dl (0.61-1.24); TOTAL PROTEIN 7.1 g/dl (6.1-8.1)
[2016-09-21 07:20] LABS: CALCIUM 8.8 mg/dl (8.4-10.2)
[2016-09-21] MEDS: GABAPENTIN 300 MG CAP PO SCH (08:15)
[2016-09-21] MEDS: CALCIUM ACETATE 667 MG CAP PO SCH ×2 (08:15→11:49)
[2016-09-21] MEDS: FOLIC ACID 1 MG TAB PO SCH (08:16)
[2016-09-21] MEDS: BRIMONIDINE 0.1% 5 ML OPH BOTH EYES SCH (08:16)
[2016-09-21] MEDS: SEVELAMER CARBONATE 0.8 GM PKT PO SCH ×2 (08:16→11:51)
[2016-09-21] MEDS: INSULIN ASPART [NOVOLOG] 3 ML PEN SC SCH ×4 (08:24→12:50)
[2016-09-21] MEDS: MULTIVIT/CA CARB/B CMPLX/FA TAB PO SCH (08:30)
[2016-09-21] MEDS: HYDROCODONE/APAP (5/325) TAB PO PRN (10:11)
[2016-09-21] MEDS: LOSARTAN 50 MG TAB PO SCH (11:47)
[2016-09-21] MEDS: NIFEdipine (XL) 30 MG TAB PO SCH (11:48)
--- NOTE | 2016-09-21 14:13 | PDOCDIS ---
Discharge Instructions CONDITION Patient Condition: Good HOME CARE INSTRUCTIONS: Diet Instructions: Reduced CalorieSpecial Diet: Renal diet ACTIVITY: Activity Restrictions: Slowly Increase Activity Avoid heavy lifting Bathing Restrictions: Shower FOLLOW UP/APPOINTMENTS Appointments NIGEL Su MD September 21, 2016 14:13
--- NOTE | 2016-09-21 17:17 | RADRPT ---
PROCEDURE: XR Lumbar Spine. CLINICAL INDICATION: Low back pain. TECHNIQUE: AP and lateral views of the lumbar spine are available for review COMPARISON: CT dated 05/28/2016. FINDINGS: There is no acute fracture or static subluxation. The vertebral body heights and intervertebral disk heights are well maintained. The normal lumbar lordosis is preserved and the alignment is normal. T he posterior elements are normal in appearance. The paravertebral soft tissues are unremarkable. IMPRESSION: Unremarkable lumbar spine series. RPTAT: EE .Matthew Ohara MD, Date Time Electronically viewed and signed by .Matthew Ohara MD, on 09/21/2016 17:17 .P/
--- NOTE | 2016-09-21 19:01 | DS ---
DATE OF ADMISSION: 09/18/2016 DATE OF DISCHARGE: 09/21/2016 HISTORY OF PRESENT ILLNESS AND HOSPITAL COURSE: This 50-year-old man was admitted through the [facility] ency room after he presented there complaining of diarrhea for 4 days, generalized weakness, and he had an elevated potassium of 6.9. The patient has end-stage renal disease and is on maintenance hem odialysis 3 times a week Wednesday, Wednesday and Wednesday. The patient was admitted to the hospital. H e underwent an emergent hemodialysis. The patient while in the hospital was dialyzed 2 more times. He improved throughout his hospital course. The patient said he felt better and had his diarrhea h ad resolved. He said that he had nausea but this also resolved. He had elevated pancreatic enzymes on admission. His lipase was elevated at 883 and amylase was 143. At the time of discharge, his a mylase was normal at 113. The lipase had gone down, but then started to drift up again at 627. He did not have any abdominal pain, nausea, vomiting. He did have an abdominal ultrasound which showed a normal gallbladder without any gallstones. The pancreas was partially visualized and what was vi sualized was normal. The kidneys showed chronic kidney disease. The patient did have evidence of f atty liver. The patient did complain of back pain which has been a chronic problem. The patient wilson d an x-ray of the LS spine which was not read at the time of discharge. The patient was ambulatory at the time of discharge. The patient was in good condition. The patient will be discharged today. He did have hemodialysis treatment today. His serum potassium predialysis was 5.4. The patient w ill go for his routine hemodialysis treatment at the [facility] dialysis unit in 2 days. I told him to see me in 3 days in my office. I will recheck his pancreatic enzymes. I will review hi s back x-ray. If needed, he may need an MRI of his back because of the continued pain. I did order physical therapy for the patient while in the hospital. MEDICATIONS: The patient will be sent home on his routine medications which include: 1. Pantoprazole 40 mg twice a day. 2. Xalatan eye drops. 3. Lantus insulin 30 units at bedtime. 4. PhosLo 667 mg with meals. 5. NovoLog insulin 10 units subcutaneous before each meal. 6. Renvela 3 capsules p.o. t.i.d. with meals. 7. Alphagan eyedrops. 8. Coreg 25 mg twice a day. 9. Folic acid 1 mg a day. 10. Gabapentin 300 mg daily. 11. Losartan 100 mg a day. 12. Nifedipine XL 30 mg a day. 13. [place] 10/325 p.o. q.6h. p.r.n. back pain. DISCHARGE DIAGNOSES: 1. End-stage renal disease. 2. Hyperkalemia due to end-stage renal disease. 3. Hypertension. 4. Diabetes mellitus. 5. Chronic low back pain. 6. Acute pancreatitis. Dictated By: NIGEL CRUZ MD, ND/SCOTT Conf#: [id number] DID#: [id number]
== END 2016-09-21 16:00 | disposition home or self-care (01) | DRG 438 ==
LOC: E/R 04:44 → TEL 05:50
PROVIDERS: ADMIT Internal Medicine; ATTEND Internal Medicine
PROC: 5A1D60Z (ICD-10-PCS; principal; 2016-09-18)
DX: K85.90 Acute pancreatitis without necrosis or infection, unspecified (principal); N18.6 End stage renal disease; I13.2 Hypertensive heart and chronic kidney disease with heart failure and with stage 5 chronic kidney disease, or end stage renal disease; E11.22 Type 2 diabetes mellitus with diabetic chronic kidney disease; I50.9 Heart failure, unspecified; Z99.2 Dependence on renal dialysis; E87.5 Hyperkalemia; M54.9 Dorsalgia, unspecified; D63.1 Anemia in chronic kidney disease; G89.29 Other chronic pain
CPT/HCPCS: 36415; 71010; 72100; 76700; 80053; 82150; 82962; 83690; 84484; 85025; 87075; 90935; 93005; 94644; 96374; 96375; J0360; J0610; J1815

== ENCOUNTER 2017-01-18 17:49 | Emergency (ER) | payer MEDICAID, MEDICARE ==
[~2017-01-18] VITALS: Ht 177.8 cm; Wt 112.5 kg
[2017-01-18 18:05] VITALS: Ht 177.8 cm; Wt 112.5 kg
== END 2017-01-18 22:18 | disposition left against medical advice (07) ==
LOC: E/R 17:49
DX: Z53.21 Procedure and treatment not carried out due to patient leaving prior to being seen by health care provider (principal)

== ENCOUNTER 2017-01-22 09:33 | Emergency (ER) | payer SELFPAY ==
[~2017-01-22] VITALS: Ht 177.8 cm; Wt 108.5 kg
[2017-01-22 09:39] VITALS: Ht 177.8 cm; Wt 108.5 kg
== END 2017-01-22 11:07 | disposition left against medical advice (07) ==
LOC: E/R 09:33
DX: Z53.21 Procedure and treatment not carried out due to patient leaving prior to being seen by health care provider (principal)

== ENCOUNTER 2017-12-16 20:31 | Emergency (ER) | END 2017-12-16 22:00 | disposition left against medical advice (07) ==